=== PATIENT | female | born 1975 | race Caucasian/White ===

== ENCOUNTER → 2019-05-01 | Outpatient (CLI) | payer BC, OTHER ==
[~2019-05-01] VITALS: Ht 157.5 cm; Wt 70.3 kg
[~2019-05-01] MED LIST: FLEXERIL PO; VENLAFAXINE HCL75 M1 PO
[2019-05-01 13:52] VITALS: BP 121/76
--- NOTE | 2019-05-01 13:54 | NUR ---
Pain Clinic Assessment: 1. History of Osteoarthritis: Not Applicable History of Rheumatoid Arthritis: Not Applicable 2. Height: 5 ft. 2 in. 157.5 cm. Weight: 155.0 lb. oz. 70.308 kg. Patient's BMI: 28.3 3. Vital Signs: BP: 121/76 Pulse: 69 Resp: 16 Temp: 02 Sat: 100 ECG Mon: 4. Pain Intensity: 5 5. Fall Risk: Dizziness: N Needs help standing or walking: N Fallen in the last 3 months: N Fall risk comments: 6. Patient on Blood Thinner: None 7. History of Hypertension: N 8. Opioid Therapy greater than 6 weeks: Opiate Contract Signed: 9. Risk Assessment Tool Provided: 2-low 10. Functional Assessment Tool: 11. Recreational Drug Use: Never Drug Type: Tobacco Use: Former Smoker Tobacco Type: Amount or Packs/day: How Many Years: Alcohol Use: Yes Frequency: Special Occasions Quant: 2
--- NOTE | 2019-05-15 07:40 | HPC ---
[facility] [place] [address] PAIN MANAGEMENT CONSULTATION Name: ASHA CORTES Room #: REG TRISTEN Dipika#: [id number] Admission: 05/01/19 Attend Phys: Kael Bennett DO Discharge: Date of : 75 Report #: [id number] THIS REPORT FOR: cc: MIKE - No family physician/PCP MIKE - No family physician/PCP Kael Bennett DO ~ THIS REPORT FOR: //name// DATE OF SERVICE: 05/01/2019 CHIEF COMPLAINT: Neck pain, bilateral shoulder and upper extremity pain, right greater than left. HISTORY OF PRESENT ILLNESS: As you know, the patient is a 43-year-old female who reports longstanding history of neck pain, bilateral upper extremity pain. She indicates pain began in 1993. The patient apparently has undergone a fusion of the C5 through C7 area in her home state of [place]. She has relocated to the area and sought evaluation through her primary care physician who referred the patient on to Neurosurgery. She was evaluated by Neurosurgery and advised that she is not a surgical candidate at this time and was given suggestions for treatment. She chose to be seen in our clinic to discuss options for therapy. The patient was originally sent to our clinic for occipital neuralgia and chronic cervical radiculopathy with mainly right-sided issues. She reported during the evaluation with Neurosurgery a pain of up to 6/10. Imaging of the cervical spine showed no significant abnormalities and she was advised to try more conservative options. The patient reports today her pain is continuous, steady, and constant, describes the pain as shooting, aching, sharp, and stabbing, places current pain score 4-5/10, daily average of 6/10, worst pain has been as 8/10. The patient indicates she has trialled various medications including gabapentin, Lyrica, and Cymbalta for pain, all of which have provided no improvement. She was referred to our service to discuss the potential treatment options for chronic occipital neuralgia and cervical radiculopathy. PAST MEDICAL HISTORY: 1. Emotional problems. 2. Gallbladder disease. 3. Uterine cancer. 4. Chronic headaches. PAST SURGICAL HISTORY: 1. Cholecystectomy. 2. Cervical fusion. [facility] [address] [place] [address] PAIN MANAGEMENT CONSULTATION Name: ASHA CORTES Room #: REG [facility]..#: [id number] Admission: 05/01/19 Attend Phys: Kael Bennett DO Discharge: Date of : 75 Report #: [id number] 3. Partial hysterectomy. 4. Repeat cervical surgery. 5. Shoulder surgery. SOCIAL HISTORY: The patient reports she is a nonsmoker. Denies IV or illicit drug use. Admits to 2-3 alcohol beverages per week. 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 She is working, not receiving workmen's compensation or is she trying to obtain disability benefits. She reports she is not in litigation in regards to pain. She is unaccompanied at today's visit. REVIEW OF SYSTEMS: Positive for headaches, wearing corrective eyewear, numbness and tingling, neck pain and bilateral upper extremity pain and cervicogenic headaches. All other review of systems negative per 12-point review of systems other than those listed in history of present illness. Pain impact score 44/70 indicating moderate interference of daily activities secondary to pain. ALLERGIES: No reported drug allergies. CURRENT MEDICATIONS: Venlafaxine 75 mg twice a day, cyclobenzaprine 10 mg t.i.d. p.r.n. muscle spasms. IMAGING: CT of the head and cervical spine obtained on 01/18/2019 shows minimal retrolisthesis of C4 on C5, anterior cervical diskectomy and fusion hardware noted. Mild uncovertebral joint changes throughout the cervical spine. No significant central canal neural foraminal stenosis. PHYSICAL EXAMINATION: VITAL SIGNS: Blood pressure 121/76, pulse 69, respiratory rate 16, and unlabored. The patient is 100% on room air. Height 5 feet 2 inches tall, weight 155 pounds, BMI calculated 28.3. GENERAL: Well-developed, well-nourished, well-hydrated 43-year-old female, appears older than stated age, placing current pain score 5/10. HEENT: Normocephalic, atraumatic. Pupils are equal, round, and reactive. NEUROLOGIC: There is normal speech. The patient deemed a fair historian. LUNGS: Clear. No wheezing noted. CARDIOVASCULAR: Regular. ABDOMEN: Soft. EXTREMITIES: Show no clubbing, no cyanosis, and no edema. MUSCULOSKELETAL: Upper extremity strength equal and symmetrical 5/5. She is intact to light touch from C5-T1 dermatomes. Cervical provocation testing is met with restriction in motion both with lateral flexion and rotation. No significant pain generated. There is some palpatory tenderness over the paraspinal musculature of the cervical spine on the right. Deep palpation in [facility] [address] [place] [address] PAIN MANAGEMENT CONSULTATION Name: ASHA CORTES #: REG TRISTEN Bar#: [id number] Admission: 05/01/19 Attend Phys: Kael Bennett DO Discharge: Date of : 75 Report #: [id number] area causes intensification of pain consistent with an occipital neuralgia. Upper extremity strength equal and symmetrical 5/5. Muscle bulk and tone equal and symmetrical in comparing left upper extremity to right. Deep tendon reflexes are symmetrical. ASSESSMENT: 1. Right occipital neuralgia. 2. Chronic cervical radiculopathy. 3. Failed cervical spine surgery. PLAN: 1. The patient has been referred to our service by her neurosurgery team to discuss the possibility of treatment for right occipital neuralgia. We discussed with the patient treatment options for occipital neuralgia which include physical therapy, stretching exercise, and traction techniques. We discussed medication management being initiated by her primary care team either in the form of restarting nortriptyline, amitriptyline, Cymbalta, Lyrica, or gabapentin. We discussed occipital nerve blocks, which can provide some transient improvement in symptoms. We also discussed Botox injections, which will provide a more long-term benefit, but will have to be sought through Neurology. We also discussed surgical options with the patient today. After reviewing the risks and benefits of all the proposed treatment options, the patient chose to obtain a primary care physician to begin medication management. Once the patient has obtained this primary care team, the following would be recommended for treatment. 1. If the patient is started on nortriptyline, would recommend 25 mg dose initially at night for 7 nights, increase to 2 tabs p.o. at bedtime or a total of 50 mg, continuing the escalation every 7 days until reaching efficacious level or side effects that cannot be tolerated. If choosing to utilize Cymbalta, begin the patient at 30 mg dose at night for 7 nights, then increase to 60 mg and continue for 1 month. Further escalation by 30 mg dose would be done every month until reaching 120 mg total per day or side effects that cannot be tolerated. We also discussed Lyrica starting at 75 mg dose, continuing to increase every 7 nights to reach upwards of 225 mg p.o. at bedtime. We also discussed gabapentin therapy starting at 300 mg dose escalating every 3 days to reaching a total of up to 1200 mg t.i.d. This can be initiated by her primary care team if they deem necessary. 2. The patient and I did discuss at some length today the possibility of a spinal cord stimulator to help with cervical radiculopathy. They have shown to be somewhat effective, though given her a level of fusion, it may be impossible to be able to feed the leads appropriately into the cervical area given the small caliber of cervical spinal canal. We will have to obtain the patient's MRI and review this MRI in its entirety. We will attempt to gain this MRI and have requested that the patient fill out a release of information forms. Once we have a chance to review this and determine if [place] [address] PAIN MANAGEMENT CONSULTATION Name: ASHA CORTES Room #: REG TRISTEN Bar#: [id number] Admission: 05/01/19 Attend Phys: Kael Bennett DO Discharge: Date of : 75 Report #: [id number] cord stimulator, we will contact the patient. I did give the patient information about the spinal cord stimulator today that she can review at her earliest convenience. She will have to undergo psychiatric evaluation to determine if she is a candidate from a psychosocial standpoint, but if mechanically she is a candidate, we can certainly look forward to this as an option for treatment. We will keep the patient apprised of our review of the MRI and determine if she is a candidate mechanically to undergo the procedure. 3. We will be obtaining also from the patient information about the EMG that she had done with Dr. Kirkpatrick. Apparently, this EMG was completed in early portion of March. We will obtain this information and determine if a cervical radiculopathy remains present. There is a possibility that she is experiencing just post-cervical pain typical with fusion. We will review this EMG and determine if she is a candidate for spinal cord stimulator based on those findings as well. We have asked for the release of this information. 4. We will contact the patient once we have a chance to review all the remaining information and advised her of treatment course. Based on current physical exam and history she provides, it does appear that she is suffering from occipital neuralgia which may benefit from injections or Botox treatments. As for the cervical radiculopathy, we will review further and determine if this is something needed to be treated with aggressive treatment or the patient can follow up with PCP for medications. 5. We would like to thank Angi Harris for the opportunity to see the patient in consultation. We will keep you apprised of treatment suggestions. <ELECTRONICALLY SIGNED> By: Kael Bennett DO 05/15/19 [id number] Kael Bennett DO /nt
== END ==
LOC: PAIN 06:54
DX: M54.12 Radiculopathy, cervical region (principal); M54.81 Occipital neuralgia; M25.511 Pain in right shoulder; M25.512 Pain in left shoulder; M79.641 Pain in right hand; M79.642 Pain in left hand; Z90.49 Acquired absence of other specified parts of digestive tract; Z98.1 Arthrodesis status; Z79.899 Other long term (current) drug therapy

== ENCOUNTER → 2019-05-29 | Outpatient (CLI) | payer BC, OTHER ==
[~2019-05-29] VITALS: Ht 157.5 cm; Wt 69.7 kg
[~2019-05-29] MED LIST changes: +PERCOCET 7.5-31 EAC1 PO
--- NOTE | ~2019-05-29 | HPC ---
[facility] [place] [address] PAIN MANAGEMENT CONSULTATION Name: ASHA CORTES Room #: REG TRISTEN [facility].#: [id number] Admission: 05/29/19 Attend Phys: Kael Bennett DO Discharge: Date of : 75 Report #: [id number] THIS REPORT FOR: cc: MIKE - No family physician/PCP FAM - No family physician/PCP Kael Bennett DO ~ CC: [facility] physician/PCP Kael Harris DATE OF SERVICE: 05/29/2019 CHIEF COMPLAINT: Neck pain, bilateral shoulder and upper extremity pain, right greater than left. HISTORY OF PRESENT ILLNESS: As you know, patient is a 43-year-old female who has had longstanding history of neck pain, bilateral upper extremity pain and paresthesias that began in 1993. She has undergone fusion of the C5 through C7 level in her home state of [place]. She relocated to our area and started evaluation through Neurosurgery who referred the patient to our clinic to discuss options for treatment. I saw the patient in consultation 05/01/2019 where we discussed the options for treatment. Unfortunately, her options for treatment are very limited. She is not a traditional surgical candidate based on the reports from Neurosurgery after seeing nurse practitioner, Angi Harris. We saw the patient here in our clinic on 05/01/2019 gave her the options of treatment, which would be physical therapy, stretching exercises, traction techniques. We also discussed having her primary care physician adjust medications such as nortriptyline, amitriptyline, Lyrica, Cymbalta or gabapentin to address neuropathic symptoms. We would not recommend opioid medications in this patient's case as they are ineffective against neuropathic symptoms. We discussed cervical epidural injection under fluoroscopic guidance, though the patient has had them in the past with no efficacy. We also discussed ultimately spinal cord stimulator therapy. We have obtained information from the patient's surgical sites and unfortunately percutaneous leads would not be able to be advanced due to the posterior changes from her surgeries. This precluded her from having a trial with percutaneous leads, but does not preclude her from a possible paddle trial lead placement. Unfortunately, we at [facility] do not offer this type of treatment. She returns today to discuss this spinal cord stimulator trial. ALLERGIES: No reported drug allergies. CURRENT MEDICATIONS: Venlafaxine 75 mg twice a day, cyclobenzaprine 10 mg t.i.d. p.r.n. SOCIAL HISTORY: The patient reports she is a nonsmoker. [place] [address] PAIN MANAGEMENT CONSULTATION Name: ASHA CORTES Room #: REG TRISTEN Dipika#: [id number] Admission: 05/29/19 Attend Phys: Kael Bennett DO Discharge: Date of : 75 Report #: [id number] drug use. She admits to 2-3 alcohol beverages per week. She is employed with [employer] working, not receiving workmen's compensation, unaccompanied today. IMAGING: There is no new imaging available. PHYSICAL EXAMINATION: VITAL SIGNS: Blood pressure 116/72, pulse 70, respiratory rate 18 and unlabored. The patient is 98% on room air. Height 5 feet 2 inches tall, weight 153.6 pounds and BMI calculated 28.1. GENERAL: Well-developed, well-nourished, well-hydrated 43-year-old female appearing stated age. She is placing pain today at 6/10. HEENT: Normocephalic, atraumatic. Pupils equal, round, reactive to light. EXTREMITIES: Show no clubbing, no cyanosis, and no edema. MUSCULOSKELETAL: Upper extremity strength remains symmetrical 5/5, intact to light touch from C5-T1 dermatomes. Cervical provocation test is met with restriction of motion both with lateral flexion and rotation. There are well-healed surgical posterior scars and anterior scars from prior fusions. Muscle bulk and tone equal and symmetrical in the upper extremities. Deep tendon reflexes are equal and symmetrical in upper extremities. ASSESSMENT: 1. Chronic neck pain. 2. Chronic cervical radiculopathy. 3. Failed cervical spine surgery. 4. Chronic intractable pain. PLAN: 1. The patient returns today in followup visit to discuss the review of her information and surgical sites. Unfortunately, based on imaging, I do not believe we will be able to easily place a percutaneous leads in the cervical region. She has had posterior fusion from C5 through C7, which will make the canal much more tortuous plus scarring tissue that is noted in imaging. We would recommend if the patient wishes to look towards a spinal cord stimulator as a treatment course to discuss with Neurosurgery the possibility of a paddle lead placement in the cervical spine. Percutaneous leads I do not feel are going to be an achievable goal. I have advised the patient such today. The patient will be following up with Neurosurgery in regards to the possibility of a paddle lead trial and placement to address cervical radicular symptoms. 2. No medication changes made at today's visit. The patient presently does not have a family practitioner to work with from a primary care physician standpoint. She will need to obtain a primary care physician who can help with adjusting medications for her ongoing pain issues. Certainly, we can give suggestions of treatment, though at this point, I do not feel that we will be able to continually see the patient for these neuropathic medications without the assistance of her primary care. The patient is looking into this issue. We [facility] [address] [address] PAIN MANAGEMENT CONSULTATION Name: ASHA CORTES Room #: REG TRISTEN Bar#: [id number] Admission: 05/29/19 Attend Phys: Kael Bennett DO Discharge: Date of : 75 Report #: [id number] would be more than willing to provide suggestions to that practitioner once they are available. 3. We wish to thank nurse practitioner, Angi Harris for the referral of the patient to our clinic. We will be returning her care to your capable services to discuss spinal cord stimulator paddle implantation for the cervical radiculopathy patient is experiencing. By: [id number] Kael Bennett DO /nt
[2019-05-29 13:34] VITALS: BP 116/72
--- NOTE | 2019-05-29 13:39 | NUR ---
Pain Clinic Assessment: 1. History of Osteoarthritis: Not Applicable History of Rheumatoid Arthritis: Not Applicable 2. Height: 5 ft. 2 in. 157.5 cm. Weight: 153.6 lb. oz. 69.672 kg. Patient's BMI: 28.1 3. Vital Signs: BP: 116/72 Pulse: 70 Resp: 18 Temp: 02 Sat: 98 ECG Mon: 4. Pain Intensity: 6 5. Fall Risk: Dizziness: N Needs help standing or walking: N Fallen in the last 3 months: N Fall risk comments: 6. Patient on Blood Thinner: None 7. History of Hypertension: N 8. Opioid Therapy greater than 6 weeks: Y Opiate Contract Signed: 9. Risk Assessment Tool Provided: 2-low 10. Functional Assessment Tool: 11. Recreational Drug Use: Never Drug Type: Tobacco Use: Former Smoker Tobacco Type: Amount or Packs/day: How Many Years: Alcohol Use: Yes Frequency: Quant:
== END ==
LOC: PAIN 06:53
DX: M54.12 Radiculopathy, cervical region (principal); G89.29 Other chronic pain; Z79.01 Long term (current) use of anticoagulants; Z79.899 Other long term (current) drug therapy

== ENCOUNTER → 2019-07-31 | Outpatient (CLI) | payer BC ==
[~2019-07-31] VITALS: Ht 157.5 cm; Wt 70.2 kg
[~2019-07-31] MED LIST changes: +PERCOCET 5-3251 EACH PO
[2019-07-31 08:17] VITALS: BP 123/79
--- NOTE | 2019-07-31 08:26 | NUR ---
Pain Clinic Assessment: 1. History of Osteoarthritis: Not Applicable History of Rheumatoid Arthritis: Not Applicable 2. Height: 5 ft. 2 in. 157.5 cm. Weight: 154.8 lb. oz. 70.217 kg. Patient's BMI: 28.3 3. Vital Signs: BP: 123/79 Pulse: 73 Resp: 16 Temp: 02 Sat: 95 ECG Mon: 4. Pain Intensity: 5-6 5. Fall Risk: Dizziness: N Needs help standing or walking: N Fallen in the last 3 months: N Fall risk comments: 6. Patient on Blood Thinner: None 7. History of Hypertension: N 8. Opioid Therapy greater than 6 weeks: Y Opiate Contract Signed: 9. Risk Assessment Tool Provided: 2-low 10. Functional Assessment Tool: 11. Recreational Drug Use: Never Drug Type: Tobacco Use: Former Smoker Tobacco Type: Amount or Packs/day: How Many Years: Alcohol Use: Yes Frequency: Quant:
--- NOTE | 2019-08-01 12:58 | HPC ---
[facility] [address] [address] PAIN MANAGEMENT CONSULTATION Name: ASHA CORTES Room #: REG TRISTEN Maria L.#: [id number] Admission: 07/31/19 Attend Phys: Kael Bennett DO Discharge: Date of : 75 Report #: [id number] THIS REPORT FOR: cc: FAM - No family physician/PCP FAM - No family physician/PCP Kael Bennett DO ~ CC: [facility] physician/PCP Kael Jerry RN DATE OF SERVICE: 07/31/2019 REFERRING PHYSICIAN: Regulo León MD CHIEF COMPLAINT: Neck pain, bilateral shoulder and upper extremity pain. HISTORY OF PRESENT ILLNESS: As you know, the patient is a 43-year-old female with longstanding history of neck pain, bilateral upper extremity pain with paresthesias began in 1993. She has undergone a fusion at C5, C6 through C7 levels, relocated to our area, where she is followed up with Neurosurgery. The patient was referred to our clinic to discuss the possibility of treatment options. We discussed with the patient the treatment options that we have are limited, but we did not recommend opioid medications long-term. She was receiving opioid medications through the referring physician. We did discuss more appropriate treatment options including neuropathic medications and the possibility of either surgical intervention, whether this be a spinal cord stimulator or the possibility of using traditional surgical roots. The patient sought further evaluation through her neurosurgery team who advised her she is a candidate to look towards cervical spinal cord stimulator treatment, but she could not undergo that procedure due to COVID-19 restrictions on elective surgeries. She was advised to return to our clinic to discuss options for treatment. She denies new injury, trauma or any changes in medical history since our last visit. ALLERGIES: No known drug allergies. CURRENT MEDICATIONS: Venlafaxine 75 mg twice a day, cyclobenzaprine 10 mg t.i.d. Percocet 7.5/325, five tabs per day. SOCIAL HISTORY: The patient reports she is a nonsmoker. Denies IV or illicit drug use. Admits to 3 alcoholic beverages per week. She is employed with [employer]. She is working, not receiving workmen's compensation, unaccompanied today. IMAGING: No new imaging available. [facility] [address] [place] [address] PAIN MANAGEMENT CONSULTATION Name: ASHA CORTES Room #: REG [facility].#: [id number] Admission: 07/31/19 Attend Phys: Kael Bennett DO Discharge: Date of : 75 Report #: [id number] PHYSICAL EXAMINATION: VITAL SIGNS: Blood pressure 123/79, pulse 73, respiratory rate 16 and unlabored. The patient is 95% on room air. Height 5 feet 2 inches tall, weight 154.8 pounds, BMI calculated 28.3. GENERAL: Well-developed, well-nourished, well-hydrated 43-year-old female appearing stated age, pain is rated today at around 5-6/10. HEENT: Normocephalic, atraumatic. Pupils equal, round, reactive to light. Speech is fluent. The patient deemed a good historian. EXTREMITIES: Show no clubbing, no cyanosis, and no edema. MUSCULOSKELETAL: Upper extremity strength appears symmetrical 5/5, intact to light touch from L1 through S2 dermatomes. Cervical provocation is met with restriction of motion with lateral flexion and rotation. Well-healed surgical scars. ASSESSMENT: 1. Chronic neck pain. 2. Chronic cervical radiculopathy. 3. Failed cervical spine surgery. 4. Chronic intractable pain. PLAN: 1. The patient returns today in followup visit indicating that she has discussed her case with Neurosurgery and they felt that she would be a possible candidate for implantation of a cervical spinal cord stimulator, though at this point due to the COVID-19 restriction, she is not a candidate to undergo the procedure at this time. She had this discussion with Neurosurgery, but has not been seen by Psychiatry. We recommend that she begin the process of obtaining all the required prerequisites before they discuss the possible surgery. The patient was agreeable. 2. We have provided the patient with a referral to discuss her case with Psychiatry. This is required by all ____ when individuals are moving forward with spinal cord stimulator trials. We will have the patient undergo the psychiatric evaluation and return to her neurosurgeon with that information. 3. We have advised the patient to contact Neurosurgery today as they have relaxed the COVID-19 restrictions to some degree and to request an opportunity to expedite her surgical case. The patient should be able to obtain her psychiatric evaluation over the next couple of days as they are doing most psychiatric evaluations via Telehealth and this can be done at the patient's earliest convenience. The patient will contact Neurosurgery to move her procedure time forward if at all possible. 4. The patient indicates that she is taking excessively high dose opioid medication. She is taking 7.5 mg oxycodone doses up to 5 times a day for a total of 37.5 mg of oxycodone a day, which equates to 56-1/4 morphine equivalents a day, well above the CDCs recommended guidelines for chronic pain. We have advised the patient in the past that chronic opioid medication is not [address] [address] PAIN MANAGEMENT CONSULTATION Name: ASHA CORTES Room #: REG TRISTEN Bar#: [id number] Admission: 07/31/19 Attend Phys: Kael Bennett DO Discharge: Date of : 75 Report #: [id number] appropriate for neuropathic symptoms and would not be recommended. She advises us today that she is no longer receiving opioid medications from her workmen's compensation physician, as they have completed her case and have settled. She has also been advised by her PCP that continuation of medication needed to be predicated on surgical options. She returns to our clinic today stating that her Neurosurgery Team has advised that we would be willing to write these medications. I have advised the patient at this time, we are not at all willing to write the level of medication she is on. We would be willing to provide her with a short dose of medication with the understanding that these will be discontinued as soon as the surgery is completed. We will not be providing long-term opioid medication management in this patient's case as it is not an appropriate treatment course. The patient states she understood. She is willing to make the adjustments in our medication recommendations with the understanding these will be discontinued quickly. 5. The patient was provided a prescription of oxycodone/acetaminophen 5/325 one tab p.o. q. 8 hours p.r.n. for pain. I have given the patient #90 tablets to release today. These are to be used no more than 3 a day. These will be discontinued as soon as surgery has been completed. This is not a long-term medication management. We will not be providing more than 3 months total time at this dosing of therapy. The patient was made aware of this today. 6. The patient will contact her neurosurgery team today to begin the process of expediting her surgical procedure if they may do so under the current restrictions. <ELECTRONICALLY SIGNED> By: Kael Bennett DO 08/01/19 1258 [id number] Kael Bennett DO /nt
== END ==
LOC: PAIN 06:47
DX: M54.12 Radiculopathy, cervical region (principal); M25.511 Pain in right shoulder; M25.512 Pain in left shoulder; G89.29 Other chronic pain; M96.1 Postlaminectomy syndrome, not elsewhere classified

== ENCOUNTER → 2019-08-28 | Outpatient (CLI) | payer BC ==
[~2019-08-28] VITALS: Ht 157.5 cm; Wt 70.3 kg
[2019-08-28 08:00] VITALS: BP 132/77
--- NOTE | 2019-08-28 08:05 | NUR ---
Pain Clinic Assessment: 1. History of Osteoarthritis: NECK History of Rheumatoid Arthritis: Not Applicable 2. Height: 5 ft. 2 in. 157.5 cm. Weight: 155.0 lb. oz. 70.308 kg. Patient's BMI: 28.3 3. Vital Signs: BP: 132/77 Pulse: 84 Resp: 18 Temp: 02 Sat: 100 ECG Mon: 4. Pain Intensity: 4 5. Fall Risk: Dizziness: N Needs help standing or walking: N Fallen in the last 3 months: N Fall risk comments: 6. Patient on Blood Thinner: None 7. History of Hypertension: N 8. Opioid Therapy greater than 6 weeks: Y Opiate Contract Signed: 9. Risk Assessment Tool Provided: 2-low 10. Functional Assessment Tool: 11. Recreational Drug Use: Never Drug Type: Tobacco Use: Former Smoker Tobacco Type: Amount or Packs/day: How Many Years: Alcohol Use: Yes Frequency: Weekly Quant: 4
--- NOTE | 2019-08-28 14:16 | HPC ---
[facility] [place] [address] PAIN MANAGEMENT CONSULTATION Name: ASHA CORTES Room #: REG TESSIEJose M.Colby.#: [id number] Admission: 08/28/19 Attend Phys: Vanessa Salomon Discharge: Date of : 75 Report #: [id number] THIS REPORT FOR: cc: FAM - No family physician/PCP FAM - No family physician/PCP Vanessa Salomon ~ CC: DR GRETCHEN MARI DO DR SAMMI LEÓN DATE OF SERVICE: 08/28/2019 CHIEF COMPLAINT: Neck pain, bilateral shoulder pain and upper extremity pain. HISTORY OF PRESENT ILLNESS: As you know, this is a 43-year-old female who returns to the pain clinic today for refill of her medications by Dr. Gretchen Mari who is willing to write for 3 months until she is able to have a spinal cord stimulator placed by Dr. León. She has not seen a psychiatrist for her spinal cord evaluation. She is going to have that done this next month. She states that she has seen us last, her had fallen and required emergency surgery. She has been dealing with that and also the COVID virus, things were closed, so she is planning on making an appointment soon to have that evaluation, so she can proceed with her trial of the spinal cord stimulator for her neck pain. Today, she is complaining of neck, right shoulder, right arm pain, rating it 4/10, explaining that it is a dull, sharp pain, worse with flexion of her neck. She feels the medication as well as stretching have been beneficial. 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 She denies any problems with constipation or daytime somnolence as a result of her opioid medications. ALLERGIES: No known drug allergies. CURRENT LIST OF MEDICATIONS: Oxycodone 5/325 t.i.d., venlafaxine and Flexeril. PQRS: 1. She has osteoarthritis in her neck. She denies any rheumatoid arthritis. 2. Height is 5 feet 2 inches, weight is 155, BMI is 28. 3. Vital signs 132/77, pulse is 84, respirations 18, oxygen sat is 100. 4. Pain score is 4/10. 5. Denies dizziness, does not need help walking or standing, has not fallen in the last 3 months. 6. The patient is not on any blood thinners or medicine for hypertension. 7. Opioid therapy is greater than 6 weeks. We have not signed an opioid signed contract since she is only to have medicines from us for [address] [place] [address] PAIN MANAGEMENT CONSULTATION Name: ASHA CORTES Room #: REG Jose Lisa.#: [id number] Admission: 08/28/19 Attend Phys: Vanessa Salomon Discharge: Date of : 75 Report #: [id number] 8. Recreational drug use, she denies. She is a former smoker and occasionally drinks alcohol. Her risk assessment tool is low. Functional assessment is 44/70. PHYSICAL EXAMINATION: GENERAL: This is a well-developed, well-nourished, well-hydrated 43-year-old female who appears her stated age, placing her current pain score at 4/10. HEENT: Normocephalic, atraumatic. Pupils equal, round and reactive to light. She is wearing a mask today. EXTREMITIES: No clubbing, no cyanosis, no edema. MUSCULOSKELETAL: Cervical provocation is met with restrictions of motion of the lateral flexion and rotation. Pain is increased with forward flexion as well. Upper extremity strength symmetrical at 5/5 in both extremities. ASSESSMENT: 1. Chronic pain. 2. Cervical radiculopathy. 3. Failed cervical spine surgery. 4. Chronic intractable pain. We reviewed the fact that opiate medications are being used to provide analgesia adequate to support activities of daily living, not attempting to achieve a specific pain score on the 0-10 Visual Analog Scale. The current opiate medications are providing sufficient analgesia to allow the patient to participate in activities of daily living. The patient is not exhibiting any aberrant behavior suggestive of drug diversion. The patient is not having any adverse reactions to medications. The patient is not suffering from daytime somnolence or mental acuity changes. The patient is managing opiate-induced constipation with appropriate [id number] agents and dietary considerations. The patient was counseled on concern for caution with operating a motor vehicle while using opiate medications. A physical exam was performed and the patient's functional status was evaluated. All patients with back pain were advised against the bed rest greater than 4 days and were advised to return to normal activities. Pain score assessment was noted and the treatment plan was reviewed with the patient. All current medications, both prescribed and OTC were reviewed and reconciled on the electronic medical record. Tobacco screening was accomplished and smoking cessation was advised when indicated. BMI was noted and diet/exercise modification was recommended for all patients following outside normal parameters. I reviewed with the patient today their responsibilities to safeguard prescription medications, reviewed their responsibility to utilize medications only as prescribed by the physician. They are to seek and receive pain medications only from 1 physician group ([facility]). They are to use [address] [address] PAIN MANAGEMENT CONSULTATION Name: ASHA CORTES Room #: REG TRISTEN Bar#: [id number] Admission: 08/28/19 Attend Phys: Vanessa Salomon Discharge: Date of : 75 Report #: [id number] pharmacy and keep the clinic informed if they change pharmacies. Their responsibilities include making followup visits in a timely fashion and to avoid abrupt discontinuation of medication usage. Their responsibilities further include bringing their medications (bottles from the pharmacy with residual pills) to the visit for possible confirmation of pill counts and the patient understands it is their responsibility to submit to random drug screens to ensure both that the medications prescribed are present, and that no other controlled substances are present. All prescriptions provided today were generated electronically. PLAN: 1. We discussed treatment options with the patient today. I encouraged the patient to make an appointment for her psychiatric evaluation for her spinal cord stimulator placement, now that things are open from the COVID virus we need to proceed with this trial to be done by Dr. Sammi León. The patient is agreeable. She will call this week to set up an appointment in the next few weeks. 2. We will refill her Percocet 5/325, #90 for 1 additional month. This will be sent electronically by Dr. Gretchen Mari to their [facility] pharmacy. I reminded the patient that Dr. Grethcen Mari said he was willing to write medications for a total of 3 months, this being her second fill. She needs to work towards having her stimulator trial. The patient is agreeable with this. 3. The patient is seen today in collaboration with Dr. Mari. The patient will return in 1 month. <ELECTRONICALLY SIGNED> By: Vanessa Salomon 08/28/19 1416 0826 0840 Vanessa Salomon /janessa
== END ==
LOC: PAIN 06:48
PROVIDERS: ATTEND Clinical Nurse Specialist Adult Health
DX: M54.12 Radiculopathy, cervical region (principal); Z79.899 Other long term (current) drug therapy

== ENCOUNTER → 2019-09-25 | Outpatient (CLI) | payer BC ==
[~2019-09-25] VITALS: Ht 157.5 cm; Wt 70.3 kg
[2019-09-25 08:09] VITALS: BP 143/85
--- NOTE | 2019-09-25 08:13 | NUR ---
Pain Clinic Assessment: 1. History of Osteoarthritis: NECK History of Rheumatoid Arthritis: Not Applicable 2. Height: 5 ft. 2 in. 157.5 cm. Weight: 155.0 lb. oz. 70.308 kg. Patient's BMI: 28.3 3. Vital Signs: BP: 143/85 Pulse: 86 Resp: 16 Temp: 02 Sat: 99 ECG Mon: 4. Pain Intensity: 5 5. Fall Risk: Dizziness: N Needs help standing or walking: N Fallen in the last 3 months: N Fall risk comments: 6. Patient on Blood Thinner: None 7. History of Hypertension: N 8. Opioid Therapy greater than 6 weeks: Y Opiate Contract Signed: 9. Risk Assessment Tool Provided: 2-low 10. Functional Assessment Tool: 11. Recreational Drug Use: Never Drug Type: Tobacco Use: Former Smoker Tobacco Type: Amount or Packs/day: How Many Years: Alcohol Use: Yes Frequency: Quant:
--- NOTE | 2019-09-25 14:05 | HPC ---
[facility] [address] [place] [address] PAIN MANAGEMENT CONSULTATION Name: ASHA CORTES Room #: REG TRISTEN M.Colby.#: [id number] Admission: 09/25/19 Attend Phys: Vanessa Salomon Discharge: Date of : 75 Report #: [id number] THIS REPORT FOR: cc: MIKE - No family physician/PCP FAM - No family physician/PCP Vanessa Salomon ~ CC: Kael Sahni MD DATE OF SERVICE: 09/25/2019 CHIEF COMPLAINT: Neck pain, bilateral shoulder pain and upper extremity pain. HISTORY OF PRESENT ILLNESS: This is a pleasant 43-year-old female who returns to the pain clinic today for refill of her medications. Dr. Kael Bennett had agreed to write for 3 months of her opioid medications and then she hopefully will have her spinal cord stimulator trial done by Dr. Regulo León. She reports to me today that she is having her psychiatric evaluation for the spinal cord stimulator tomorrow with Dr. Anderson and then she is seeing Heike on 10/02/2019. Hopefully at that time, she will have her trial scheduled for Dr. León to perform for her cervical spinal cord stimulator. The patient reports a pain score of 5/10 today in her neck and right shoulder. It is a dull, sharp pain, worse with looking down and being upright. She reports that she mopped her floor yesterday and that did cause some increased pain. She feels that stretching and her medications have been beneficial. She denies any daytime somnolence or constipation as a result of her medications. She is looking forward to progressing with this process and having her trial completed for his spinal cord stimulator. ALLERGIES: No known drug allergies. LIST OF MEDICATIONS: Oxycodone 5/325 t.i.d. p.r.n., venlafaxine and Flexeril. PQRS: 1. 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 Denies any rheumatoid arthritis. 2. Height is 5 feet 2 inches, weight is 155, BMI is 28. Vital signs 143/85, pulse is 86, respirations 16, oxygen sat is 99. Pain score is 5/10. Denies dizziness, does not need help walking or standing, has not fallen in the last 3 months. The patient is not on any blood thinners or medicine for hypertension. Her opioid therapy is greater than 6 weeks. Her risk assessment is low. Functional assessment is 44/70. 3. Recreational drug use, she denies. She is a former smoker [place] [address] PAIN MANAGEMENT CONSULTATION Name: ASHA CORTES Room #: REG [facility] Maria L.#: [id number] Admission: 09/25/19 Attend Phys: Vanessa Salomon Discharge: Date of : 75 Report #: [id number] According to the prescription monitoring system, she last filled on 08/28/2019. She is due to fill her medications this week. Her morphine mEq is 22 MMEs. PHYSICAL EXAMINATION: GENERAL: This is a well-developed, well-nourished, well-hydrated 43-year-old female who appears her stated age, placing her current pain score at 5/10 today. She is a good historian. HEENT: Normocephalic, atraumatic. Pupils are equal, round and reactive to light. She is wearing a mask. EXTREMITIES: No clubbing, no cyanosis, no edema. MUSCULOSKELETAL: Upper extremity strength appears symmetrical of 5/5 and intact to light touch. Cervical provocation is met with restrictions of motion in the lateral flexion and rotation. She does have well-healed scars. ASSESSMENT: 1. Cervical radiculopathy. 2. Failed cervical spine surgery. 3. Chronic intractable pain. 4. Chronic neck pain. PLAN: 1. We discussed treatment options with the patient today. The patient is going to have her psychiatric spinal cord stimulator evaluation tomorrow with Dr. Anderson. She is instructing them to send us a copy of the report as well as Dr. Regulo León. The patient is going to see Heike, the nurse practitioner in Dr. León's office to discuss when the trial for her spinal cord stimulator for her cervical spine will be completed. Dr. León will be performing this trial. 2. The patient understands that Dr. Kael Bennett was willing to write for 3 months of her medications. This will be our last script for her, The patient verbalizes understanding. She is looking forward to having these appointments in the next 2 weeks and hopefully having her trial scheduled before the end of September. Today, we will have Dr. Bennett send electronically her oxycodone 5/325, #90 to her [facility] pharmacy. 3. We wish the patient the best, hopefully the trial will be successful and she will have her implant. She may see us on an needed basis. The patient is seen today in collaboration with Dr. Kael Bennett. <ELECTRONICALLY SIGNED> By: Vanessa Salomon 09/25/19 1405 [id number] [id number] Vanessa Salomon /nt
== END ==
LOC: PAIN 06:45
PROVIDERS: ATTEND Clinical Nurse Specialist Adult Health
DX: M54.12 Radiculopathy, cervical region (principal); G89.4 Chronic pain syndrome; T85.192A Other mechanical complication of implanted electronic neurostimulator of spinal cord electrode (lead), initial encounter

== ENCOUNTER → 2019-10-23 | Outpatient (CLI) | payer BC ==
[~2019-10-23] VITALS: Ht 157.5 cm; Wt 73.5 kg
[2019-10-23 08:04] VITALS: BP 118/79
--- NOTE | 2019-10-23 08:12 | NUR ---
Pain Clinic Assessment: 1. History of Osteoarthritis: NECK History of Rheumatoid Arthritis: Not Applicable 2. Height: 5 ft. 2 in. 157.5 cm. Weight: 162.0 lb. oz. 73.483 kg. Patient's BMI: 29.6 3. Vital Signs: BP: 118/79 Pulse: 80 Resp: 16 Temp: 02 Sat: 100 ECG Mon: 4. Pain Intensity: 5-6 5. Fall Risk: Dizziness: N Needs help standing or walking: N Fallen in the last 3 months: N Fall risk comments: 6. Patient on Blood Thinner: None 7. History of Hypertension: N 8. Opioid Therapy greater than 6 weeks: Y Opiate Contract Signed: 9. Risk Assessment Tool Provided: 2-low 10. Functional Assessment Tool: 11. Recreational Drug Use: Never Drug Type: Tobacco Use: Former Smoker Tobacco Type: Amount or Packs/day: How Many Years: Alcohol Use: Yes Frequency: Quant:
--- NOTE | 2019-10-23 10:34 | HPC ---
[facility] [place] [address] PAIN MANAGEMENT CONSULTATION Name: ASHA CORTES Room #: REG TRISTEN M.R.#: [id number] Admission: 10/23/19 Attend Phys: Vanessa Salomon Discharge: Date of : 75 Report #: [id number] THIS REPORT FOR: cc: FAM - No family physician/PCP FAM - No family physician/PCP Vanessa Salomon ~ CC: GRETCHEN WILLARD MD DATE OF SERVICE: 10/23/2019 CHIEF COMPLAINT: Neck pain, bilateral shoulder pain and upper extremity pain. HISTORY OF PRESENT ILLNESS: This is a pleasant 43-year-old female who returns to the pain clinic for medication refills. She is to have a spinal cord stimulator placed by Dr. León. She was hopeful that it would be completed at this time, but due to COVID, they have not been able to schedule it. She is hopeful to be on their procedure scheduled by the end of November. We did speak with Dr. León's office and they verbalized that this was their hopes as well. So today, she is returning for another month of medication. Our goal is to only keep her on her opioid medications until she has completed her trial. Currently, she rates her pain at 5-6. It is located in her cervical spine that radiates into her right shoulder, dull, and sharp pain. She said it is worse with forward flexion of her neck. She feels that the medication as well as stretches has been beneficial. She does report to me that the Work Comp doctor did release her. She had recently had a cortisone injection in her shoulder that was very painful. He did provide her with some tramadol for a 7-day supply that has shown up on her prescription monitoring. The patient feels that her shoulder is still very problematic. 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 ALLERGIES: No known drug allergies. CURRENT LIST OF MEDICATIONS: Oxycodone 5/325 p.r.n., venlafaxine 75 mg b.i.d. and Flexeril 10 mg at bedtime. PQRS: 1. 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 Denies any rheumatoid arthritis. 2. Height is 5 feet 2 inches, weight is 162, BMI is 29. 3. Vital signs, blood pressure 118/79, pulse is 80, respirations 16, and oxygen sat is 100. 4. Pain score is 5-6. [facility] [address] [place] [address] PAIN MANAGEMENT CONSULTATION Name: ASHA CORTES Room #: REG [facility].#: [id number] Admission: 10/23/19 Attend Phys: Vanessa Salomon Discharge: Date of : 75 Report #: [id number] 5. Denies dizziness, does not need help walking or standing, has not fallen in the last 3 months. 6. The patient is not on any blood thinners or medicine for hypertension. Opioid therapy is greater than 6 weeks. Risk assessment tool is low. Functional assessment is 44/70. 7. Recreational drug use, she denies. She is a former smoker. Does drink alcohol occasionally. According to the prescription monitoring system, the patient is filling our medicines appropriately. She did fill one short script of tramadol from her Work Comp doctor. Her morphine milliequivalent according to the CDC guidelines is 22 MMEs. PHYSICAL EXAMINATION: GENERAL: This is alert and orientated 43-year-old, well-developed, well-nourished female who is placing her current pain score at 5-6/10 today. HEENT: Normocephalic, atraumatic. Pupils equal, round and reactive to light. She is wearing a mask. EXTREMITIES: No clubbing, no cyanosis, no edema. MUSCULOSKELETAL: Upper extremity strength is symmetrical at 5/5 with intact to light touch. Her cervical provocation is met with resistance of motion in the lateral flexion and rotation. She does have well-healed surgical scars. She has pain in the right shoulder that is worse with abduction of her shoulder. IMPRESSION: 1. Chronic neck pain. 2. Chronic cervical radiculopathy. 3. Failed cervical spine surgery. 4. Chronic intractable pain. We reviewed the fact that opiate medications are being used to provide analgesia adequate to support activities of daily living, not attempting to achieve a specific pain score on the 0-10 Visual Analog Scale. The current opiate medications are providing sufficient analgesia to allow the patient to participate in activities of daily living. The patient is not exhibiting any aberrant behavior suggestive of drug diversion. The patient is not having any adverse reactions to medications. The patient is not suffering from daytime somnolence or mental acuity changes. The patient is managing opiate-induced constipation with appropriate vdcl-bkq-opwbwxe agents and dietary considerations. The patient was counseled on concern for caution with operating a motor vehicle while using opiate medications. PLAN: 1. We discussed treatment options with the patient again. The patient is awaiting her spinal cord stimulator placement by Dr. Regulo León, hopeful to be done at the end of November. She is speaking with Heike munroe, the nurse [address] [address] PAIN MANAGEMENT CONSULTATION Name: ASHA CORTES Room #: REG TRISTEN Bar#: [id number] Admission: 10/23/19 Attend Phys: Vanessa Salomon Discharge: Date of : 75 Report #: [id number] practitioner at his office. She will call us to confirm the date of the trial. 2. The patient reports she did have an MRI of the cervical spine done recently per Dr. León's orders. She will have that faxed to us. She did not bring a copy of that, but per her report, it was virtually unchanged from the one we have from 03/2018. 3. We will have Dr. Gretchen Bennett send electronically a script for oxycodone , #90 to her pharmacy. I explained that we will fill one additional month in November and at that time that should be the last prescription that we will provide for. The patient verbalizes understanding. 4. The patient is seen in collaboration with Dr. Gretchen Bennett. <ELECTRONICALLY SIGNED> By: Vanessa Salomon 10/23/19 1034 [id number] Vanessa Salomon /janessa
== END ==
LOC: PAIN 06:43
PROVIDERS: ATTEND Clinical Nurse Specialist Adult Health
DX: M54.12 Radiculopathy, cervical region (principal); M25.511 Pain in right shoulder; M25.512 Pain in left shoulder; M96.1 Postlaminectomy syndrome, not elsewhere classified; G89.29 Other chronic pain

== ENCOUNTER → 2019-11-20 | Outpatient (CLI) | payer BC ==
[~2019-11-20] VITALS: Ht 157.5 cm; Wt 74.8 kg
[2019-11-20 08:57] VITALS: BP 134/84
--- NOTE | 2019-11-20 09:04 | NUR ---
Pain Clinic Assessment: 1. History of Osteoarthritis: NECK History of Rheumatoid Arthritis: Not Applicable 2. Height: 5 ft. 2 in. 157.5 cm. Weight: 164.8 lb. oz. 74.753 kg. Patient's BMI: 30.1 3. Vital Signs: BP: 134/84 Pulse: 112 Resp: 16 Temp: 02 Sat: 98 ECG Mon: 4. Pain Intensity: 8-9 5. Fall Risk: Dizziness: N Needs help standing or walking: N Fallen in the last 3 months: N Fall risk comments: 6. Patient on Blood Thinner: None 7. History of Hypertension: N 8. Opioid Therapy greater than 6 weeks: Y Opiate Contract Signed: 9. Risk Assessment Tool Provided: 2-low 10. Functional Assessment Tool: 11. Recreational Drug Use: Never Drug Type: Tobacco Use: Former Smoker Tobacco Type: Amount or Packs/day: How Many Years: Alcohol Use: Yes Frequency: Quant:
--- NOTE | 2019-11-20 14:24 | HPC ---
[facility] [address] [place] [address] PAIN MANAGEMENT CONSULTATION Name: ASHA CORTES Room #: REG TRISTEN M.R.#: [id number] Admission: 11/20/19 Attend Phys: Vanessa Salomon Discharge: Date of : 75 Report #: [id number] THIS REPORT FOR: cc: FAM - No family physician/PCP FAM - No family physician/PCP Vanessa Salomon ~ CC: Kael Sahni MD DATE OF SERVICE: 11/20/2019 CHIEF COMPLAINT: Neck pain, bilateral shoulder pain, and upper extremity pain. HISTORY OF PRESENT ILLNESS: This is a 43-year-old female, who returns to the Pain Clinic today for a final refill of medications prior to a spinal cord stimulator implant with paddle leads by Dr. Regulo León. She is scheduled to have this surgery on 12/13. Remain in the hospital for several days for the trial and then have the permanent placed if it is successful; therefore, this will be our last prescription that we are giving her for opioid medications. Today, the patient is complaining of pain score of 8-9. She reports that it is most significantly in her neck that radiates into her occipital area to the top of her head. She reports some right shoulder pain that she is having that has been ongoing. She does see a workman comp doctor for that issue. She reports looking up and down. Flexion and extension is most problematic in her neck. She reports it is sharp, stabbing, deep ache today. She feels the medication usually resolves this or helps decrease her pain sensations, but for the last few days it has been very problematic and the medications have not been helpful. She denies any problems with somnolence or daytime somnolence or constipation. Today, she is requesting a final refill of medications from our office. ALLERGIES: No known drug allergies. CURRENT LIST OF MEDICATIONS: Oxycodone 5/325 t.i.d., venlafaxine, and Flexeril. PATIENT'S PQRS: 1. 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 She denies any rheumatoid arthritis. 2. Height is 5 feet 2 inches, weight is 164, BMI is 30. Vital signs 134/84, pulse is 112, respirations 16, oxygen sat is 98, pain score is 8-9. Fall risk. Denies dizziness, does not need help walking or standing, has not fallen in the last 3 months. She is not on any blood thinners or hypertension medicines. 3. Her opioid therapy is greater than 6 weeks; therefore, she does not have an opioid signed contract because this was a temporary treatment from our office. Her risk assessment is low. Functional assessment is 44/70. [address] [address] PAIN MANAGEMENT CONSULTATION Name: ASHA CORTES Room #: REG TRISTEN Bar#: [id number] Admission: 11/20/19 Attend Phys: Vanessa Salomon Discharge: Date of : 75 Report #: [id number] 4. Recreational drug use, she denies. She is a former smoker and does drink alcohol. According to the prescription monitoring system, the patient has been filling appropriately, but that she has filled some tramadol from her Work Comp doctor for very small fills for the last 2 months. I encouraged the patient that tramadol is less potent than her oxycodone and has probably been less ineffective in helping control some of her pain. The patient states that she will not fill any further scripts of tramadol. PHYSICAL EXAMINATION: GENERAL: This is an alert and orientated 43-year-old, rating her pain score today at 8-9. She is a good historian. HEENT: Normocephalic, atraumatic. Pupils equal, round and reactive to light. She is wearing a mask. Sclerae are nonintrinsic. EXTREMITIES: No clubbing, no cyanosis, no edema. She does have pain in her right shoulder that is worse with abduction. MUSCULOSKELETAL: Cervical provocation testing is met with resistance and increased pain. Pain radiates into the occipital area as well today. Her upper extremity strength is symmetrical at 5/5. IMPRESSION: 1. Chronic neck pain. 2. Chronic cervical radiculopathy. 3. Failed cervical spine syndrome. 4. Chronic intractable pain. 5. Ongoing right shoulder pain. We reviewed the fact that opiate medications are being used to provide analgesia adequate to support activities of daily living, not attempting to achieve a specific pain score on the 0-10 Visual Analog Scale. The current opiate medications are providing sufficient analgesia to allow the patient to participate in activities of daily living. The patient is not exhibiting any aberrant behavior suggestive of drug diversion. The patient is not having any adverse reactions to medications. The patient is not suffering from any daytime somnolence or mental acuity changes. The patient is managing opiate-induced constipation with appropriate ejvo-quh-vmrkjat agents and dietary considerations. The patient was counseled on concern for caution with operating a motor vehicle while using opiate medications. PLAN: 1. We discussed treatment options with the patient today. We will have Dr. Kael Bennett send a final prescription of oxycodone 5/325 to her pharmacy for #90. I have instructed the patient that this will get her through her surgery. At that time, she will then receive medications from Dr. León's office. The patient verbalizes understanding. [address] [place] [address] PAIN MANAGEMENT CONSULTATION Name: ASHA CORTES Room #: REG [facility] M.R.#: [id number] Admission: 11/20/19 Attend Phys: Vanessa Salomon Discharge: Date of : 75 Report #: [id number] 2. We did discuss her tramadol use from her Work Comp. I explained that it is much less potent opioid than her oxycodone and encouraged her to take one or the other, not both of these opioids. 3. We did discuss constipation and encouraged the patient to just drink plenty of liquids to help prevent any possible issues that may arise. 4. We wish the patient the best of luck with her spinal cord stimulator paddle leads that are placed by Dr. León, who will then continue to follow her. Thank you for this referral. The patient was seen today in collaboration with Dr. Kael Bennett. <ELECTRONICALLY SIGNED> By: Vanessa Salomon 11/20/19 1424 [id number] [id number] Vanessa Salomon /nt
== END ==
LOC: PAIN 06:49
PROVIDERS: ATTEND Clinical Nurse Specialist Adult Health
DX: M54.12 Radiculopathy, cervical region (principal); M25.511 Pain in right shoulder; M25.512 Pain in left shoulder; G89.29 Other chronic pain; M96.1 Postlaminectomy syndrome, not elsewhere classified; Z79.899 Other long term (current) drug therapy

== ENCOUNTER → 2020-01-09 | Outpatient (CLI) | payer BC ==
[~2020-01-09] VITALS: Ht 157.5 cm; Wt 76.4 kg
[2020-01-09 13:17] VITALS: BP 109/70
--- NOTE | 2020-01-09 13:25 | NUR ---
Pain Clinic Assessment: 1. History of Osteoarthritis: NECK History of Rheumatoid Arthritis: Not Applicable 2. Height: 5 ft. 2 in. 157.5 cm. Weight: 168.4 lb. oz. 76.386 kg. Patient's BMI: 30.8 3. Vital Signs: BP: 109/70 Pulse: 87 Resp: 14 Temp: 02 Sat: 100 ECG Mon: 4. Pain Intensity: 6 5. Fall Risk: Dizziness: N Needs help standing or walking: N Fallen in the last 3 months: N Fall risk comments: 6. Patient on Blood Thinner: None 7. History of Hypertension: N 8. Opioid Therapy greater than 6 weeks: Y Opiate Contract Signed: 9. Risk Assessment Tool Provided: 2-low 10. Functional Assessment Tool: 11. Recreational Drug Use: Never Drug Type: Tobacco Use: Former Smoker Tobacco Type: Amount or Packs/day: How Many Years: Alcohol Use: Yes Frequency: Quant:
--- NOTE | 2020-01-10 07:46 | HPC ---
[facility] [address] [place] [address] PAIN MANAGEMENT CONSULTATION Name: ASHA CORTES Room #: REG TRISTEN Maria L.#: [id number] Admission: 01/09/20 Attend Phys: Vanessa Salomon Discharge: Date of : 75 Report #: [id number] CC: Vanessa Salomon [facility] physician/PCP Kael Sahni MD DATE OF SERVICE: 01/09/2020 CHIEF COMPLAINT: Neck pain, bilateral shoulder pain and upper extremity pain, cervical radiculopathy. HISTORY OF PRESENT ILLNESS: This is a 44-year-old female who returns to the pain clinic today to discuss medication options. She recently underwent a paddle lead cervical spinal cord stimulator trial by Dr. León at [facility] in late November. Per the patient's report, she was inpatient for 4 days while they adjusted the spinal cord stimulator that she did not have relief, in fact per her report she had increasing pain throughout the trial while hospitalized and then the result was removal of the device and she is here today to discuss medication management. She is rating her pain today at 6/10, located in her cervical region that radiates into her upper right shoulder area and occasionally radiating to the left. She also complains of some pain on her right lower back at an incision area where her leads were connected to her battery pack. The patient states that she is here for refills of oxycodone. She is unsure what the next step is in her treatment of pain. She is under the understanding from the [employer] rep that Dr. Kael Bennett will be performing a possible percutaneous spinal cord stimulator leads. According to our records, Dr. Kael Bennett did not feel that he would be able to advance easily due to scarring in her cervical region. The patient states that at times when she takes a deep breath she has increased pain in her right thoracic area as well as her ongoing neck pain and occasionally radiates into her right arm as well. 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 ALLERGIES: No known drug allergies. CURRENT LIST OF MEDICATIONS: Oxycodone 5/325 p.r.n., venlafaxine, and cyclobenzaprine. PQRS: 1. She has osteoarthritis in her neck. Denies any rheumatoid arthritis. 2. Height is 5 feet 2 inches, weight is 168, BMI is 30. 3. Vital signs; blood pressure 109/70, pulse is 87, respirations 14, oxygen sat is 100%. 4. Pain score is 6/10. 5. Fall risk. Denies dizziness, does not need help walking or standing, has not fallen in the last 3 months. 6. The patient is not on any blood thinners or medicine for hypertension. 7. Her opioid therapy is greater than 6 weeks. Risk assessment tool is low. Functional assessment is 44/70. 8. Recreational drug use, she denies. She is a former smoker and does occasionally drink alcohol. According to the prescription monitoring system, she has last filled her prescription on 12/31/[address] León. This was a 10-day supply of her oxycodone. He has filled 2 prescriptions in the last month for her postoperatively. Her morphine milliequivalent according to the CDC guidelines is 30 MME's. PHYSICAL EXAMINATION: GENERAL: This is alert and orientated, tearful 44-year-old who appears her stated age, placing her current pain score today at 6/10. She is well-developed, well-nourished, well-hydrated. HEENT: Normocephalic, atraumatic. Extraocular eye muscles are intact. She is a good historian. She is wearing a mask. EXTREMITIES: No clubbing, no cyanosis, no edema. MUSCULOSKELETAL: Upper extremity strength appears symmetrical at 5/5. Cervical provocation is met with restrictions in motion with the lateral flexion and rotation. She has a well-healed surgical scar in her cervical spine several trigger points are identified in her trapezius muscles, greater on the right than the left. IMPRESSION: 1. Chronic neck pain. 2. Chronic cervical radiculopathy. 3. Failed cervical spine surgery. 4. Failed spinal cord stimulator trial. 5. Chronic intractable pain. PLAN: 1. We discussed treatment options with the patient today. It was our understanding per reports from Dr. Kael Bennett that the patient is going to have surgery with Dr. León in 3 months. The patient states that she was unaware of this current plan, but she will call their office to verify. The patient is tearful throughout some of the visit stating that she was so hopeful that the spinal cord stimulator cervical trial would be beneficial in reducing her pain, but instead she feels like her pain has increased since the trial. We will offer to continue her medications for the next 3 months awaiting to see if she is scheduled for surgery in early March. Dr. Bennett is willing to continue her at 5/325 of oxycodone 3 tablets a day for the next 3 months. The patient is agreeable with this and will call Dr. León's office as well. 2. The patient had been taking Flexeril as a muscle relaxant as needed. We will continue this medication, #30 tablets. Encouraged the patient to take these sparingly due to the sedating effect in her job. The patient verbalized understanding. 3. I have taken the liberty of writing an order for the patient for myofascial release in her cervical and trapezius muscles region through Dr. Paul dowling at [facility]. I believe this may be beneficial in helping reduce some of the patient's discomfort in her upper cervical region. I explained to her that it would not be for manipulation or adjustment it would just be for myofascial release. 4. We will have the patient follow up in 1 month. We will try to obtain records from Dr. León's office in the meantime. The patient is seen today in collaboration with Dr. Kael Bennett. <ELECTRONICALLY SIGNED> By: Vanessa Salomon 01/10/20 0746 1420 13 Vanessa Salomon /janessa
== END ==
LOC: PAIN 06:57
PROVIDERS: ATTEND Clinical Nurse Specialist Adult Health
DX: M54.12 Radiculopathy, cervical region (principal); M25.511 Pain in right shoulder; M25.512 Pain in left shoulder; M96.1 Postlaminectomy syndrome, not elsewhere classified; Z79.899 Other long term (current) drug therapy

== ENCOUNTER → 2020-02-06 | Outpatient (CLI) | payer BC ==
[~2020-02-06] VITALS: Ht 157.5 cm; Wt 76.7 kg
[~2020-02-06] MED LIST changes: +RELAFEN500 M1 PO
[2020-02-06 08:13] VITALS: BP 127/77
--- NOTE | 2020-02-06 08:19 | NUR ---
Pain Clinic Assessment: 1. History of Osteoarthritis: NECK History of Rheumatoid Arthritis: Not Applicable 2. Height: 5 ft. 2 in. 157.5 cm. Weight: 169.2 lb. oz. 76.749 kg. Patient's BMI: 30.9 3. Vital Signs: BP: 127/77 Pulse: 85 Resp: 18 Temp: 02 Sat: 99 ECG Mon: 4. Pain Intensity: 5-6 5. Fall Risk: Dizziness: N Needs help standing or walking: N Fallen in the last 3 months: N Fall risk comments: 6. Patient on Blood Thinner: None 7. History of Hypertension: N 8. Opioid Therapy greater than 6 weeks: Y Opiate Contract Signed: 9. Risk Assessment Tool Provided: 2-low 10. Functional Assessment Tool: 11. Recreational Drug Use: Never Drug Type: Tobacco Use: Former Smoker Tobacco Type: Amount or Packs/day: How Many Years: Alcohol Use: Yes Frequency: Special Occasions Quant:
--- NOTE | 2020-02-07 09:06 | HPC ---
[facility] [address] [place] [address] PAIN MANAGEMENT CONSULTATION Name: ASHA CORTES Room #: REG TRISTEN MVero.#: [id number] Admission: 02/06/20 Attend Phys: Vanessa Salomon Discharge: Date of : 75 Report #: [id number] THIS REPORT FOR: cc: MIEK - Leonila family physician/PCP FAM - No family physician/PCP Vanessa Salomon ~ CC: Vanessa Sahni MD DATE OF SERVICE: 02/06/2020 CHIEF COMPLAINT: Neck pain, bilateral shoulder pain and upper extremity pain, cervical radiculopathy. HISTORY OF PRESENT ILLNESS: This is a 44-year-old female who returns to the pain clinic today for discussion on her opioid medications and refill. Today, she is reporting an increased pain of 5-6 in her cervical region that does radiate into her right shoulder and her hands, stating it is a constant, sharp, stabbing pain with numbness. 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 This has significantly increased her pain. She reports by the end of the day she comes home, does use massage and heat as well as her medications and has been taking a few extra pain pills to help alleviate some of her pain. Today, she is reporting she has 2 days of medication left, which are several days early and is requesting an increase in the amount of medication that she takes on a daily basis. The patient states that normally the medications are beneficial just needing more than 3 tablets a day. She does have an appointment with Dr. León to discuss surgical options on 02/19/2020. She denies any constipation from her opioid medications. ALLERGIES: No known drug allergies. CURRENT LIST OF MEDICATIONS: Oxycodone 5/325 p.r.n., Flexeril p.r.n., venlafaxine. PQRS: 1. She has osteoarthritis in her cervical spine. Denies rheumatoid arthritis. 2. Height is 5 feet 2 inches, weight is 169, BMI is 30. 3. Vital signs, blood pressure 127/77, pulse is 85, respirations 18, oxygen sat is 99. 4. Pain score is 5-6. 5. Denies dizziness, does not need help walking or standing, has not fallen in the last 3 months. 6. The patient is not on any blood thinners and does not take [place] [address] PAIN MANAGEMENT CONSULTATION Name: ASHA CORTES Room #: REG TRISTEN Dipika#: [id number] Admission: 02/06/20 Attend Phys: Vanessa Salomon Discharge: Date of : 75 Report #: [id number] 7. Her opioid therapy is greater than 6 weeks. Risk assessment is low. Functional assessment is 44/70. 8. Recreational drug use, she denies. She is a former smoker and occasionally drinks alcohol. According to the prescription monitoring system, she is due to fill her medications on Tuesday, filling them in a timely fashion. Her morphine milliequivalent is 22 MME per day. PHYSICAL EXAMINATION: GENERAL: This is alert and orientated, well-developed, well-nourished 44-year-old female who places her pain score 5-6 today. HEENT: Normocephalic, atraumatic. Extraocular eye muscles are intact. She is a good historian. She is wearing a mask. Her speech is fluent. EXTREMITIES: No clubbing, no cyanosis, no edema. MUSCULOSKELETAL: Cervical provocation testing is met with restrictions in motion in the lateral flexion and rotation. She has well-healed surgical scars in her cervical spine. Pain radiates into her bilateral arms, greater on the right than the left. Muscle bulk and tone is equal and symmetrical in her upper extremities and intact to light touch at C5-T1 dermatomes. ASSESSMENT: 1. Chronic neck pain. 2. Chronic radiculopathy. 3. 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 4. Chronic intractable pain. PLAN: 1. We discussed treatment options with the patient today. The patient has been taking 4-5 tablets of pain pills a day per her report. I explained to her that Dr. Bennett is allowing her 3 tablets a day. We discussed adjunct medication therapy. She has been taking Flexeril on a p.r.n. basis. Occasionally, she will be "hungover" in the morning. I encouraged her to split her dose in half and see if that is more beneficial taking this once she comes home from work. 2. We did discuss another adjunct medicine of anti-inflammatories. The patient takes sporadic ibuprofen, encouraged her to trial Relafen 500 mg up to 3 times a day to see if this is beneficial in helping reduce some of her pain and allowing her to take less pain pills. The patient will start this medication today. Scripts sent electronically. 3. We will continue her on her oxycodone 5/325 mg tablets, #[address] be sent by Dr. Kael Bennett. We are unsure if insurance company will fill this early. The patient is seeing Dr. León on 02/19/2020 and she is encouraged to call us and let us know the results of that consultation. [address] [address] PAIN MANAGEMENT CONSULTATION Name: ASHA CORTES Room #: REG TRISTEN Bar#: [id number] Admission: 02/06/20 Attend Phys: Vanessa Salomon Discharge: Date of : 75 Report #: [id number] 4. The patient will return in [address] Kael Bennett who collaborated care. <ELECTRONICALLY SIGNED> By: Vanessa Salomon 02/07/20 0906 [id number] Vanessa Salomon /nt
== END ==
LOC: PAIN 06:47
PROVIDERS: ATTEND Clinical Nurse Specialist Adult Health
DX: M54.12 Radiculopathy, cervical region (principal); G89.4 Chronic pain syndrome; Z87.891 Personal history of nicotine dependence; Z79.891 Long term (current) use of opiate analgesic

== ENCOUNTER → 2020-03-04 | Outpatient (CLI) | payer BC ==
[~2020-03-04] VITALS: Ht 160 cm; Wt 77.1 kg
[2020-03-04 08:29] VITALS: BP 118/71
--- NOTE | 2020-03-04 08:44 | NUR ---
Pain Clinic Assessment: 1. History of Osteoarthritis: NECK History of Rheumatoid Arthritis: Not Applicable 2. Height: 5 ft. 3 in. 160.0 cm. Weight: 170.0 lb. oz. 77.112 kg. Patient's BMI: 30.1 3. Vital Signs: BP: 118/71 Pulse: 75 Resp: 16 Temp: 02 Sat: 100 ECG Mon: 4. Pain Intensity: 5-6 5. Fall Risk: Dizziness: N Needs help standing or walking: N Fallen in the last 3 months: N Fall risk comments: 6. Patient on Blood Thinner: None 7. History of Hypertension: N 8. Opioid Therapy greater than 6 weeks: Y Opiate Contract Signed: 9. Risk Assessment Tool Provided: 2-low 10. Functional Assessment Tool: 11. Recreational Drug Use: Never Drug Type: Tobacco Use: Former Smoker Tobacco Type: Amount or Packs/day: How Many Years: Alcohol Use: Yes Frequency: Monthly Quant:
--- NOTE | 2020-03-04 14:27 | HPC ---
[facility] [place] [address] PAIN MANAGEMENT CONSULTATION Name: ASHA CORTES Room #: REG [facility] M.R.#: [id number] Admission: 03/04/20 Attend Phys: Vanessa Salomon Discharge: Date of : 75 Report #: [id number] THIS REPORT FOR: cc: FAM - No family physician/PCP FAM - No family physician/PCP Vanessa Salomon ~ DATE OF SERVICE: 03/04/2020 CC: DR Regulo León MD CHIEF COMPLAINT: Back pain, bilateral shoulder pain and upper extremity pain and cervical radiculopathy. HISTORY OF PRESENT ILLNESS: This is a pleasant 44-year-old female who returns to the pain clinic today for a final visit for refill of her opioid medications. She finds these medicines beneficial in helping control her cervical radiculopathy as well as the nabumetone medication. Today, she is reporting a pain score 5-6 that radiates from her cervical spine into her right shoulder and hand. At times, it is a sharp, burning, shooting sensation. The patient reports it is worse with bending over and movement of her neck. The patient finds her medication as well as stretching beneficial. She reports now working only 40 hours a week, as has a written work excuse from her neurosurgeon. This has greatly reduced her pain due to the less activity throughout the day. ALLERGIES: No known drug allergies. CURRENT LIST OF MEDICATIONS: Oxycodone 5/325 t.i.d. p.r.n., nabumetone, Flexeril. PQRS: 1. She has osteoarthritis in her cervical spine. Denies any rheumatoid arthritis. 2. Height is 5 feet 3 inches, weight is 170, BMI is 30. 3. Vital signs 118/71, pulse is 75, respirations 16, oxygen sat is 100. 4. Pain score is 5-6. 5. Denies dizziness, does not need help walking or standing, has not fallen in the last 3 months. 6. The patient is not on any blood thinners or medicine for hypertension. 7. Her opioid therapy is greater than 6 weeks. Risk assessment is low. Functional assessment is 44/70. 8. Recreational drug use, she denies. She is a former smoker and occasionally drinks alcohol. According to the prescription monitoring system, she is due to fill her medications today, filling them in a timely fashion. Morphine mEq is 22 MME per day. [address] [address] PAIN MANAGEMENT CONSULTATION Name: ASHA CORTES Room #: REG CLJose Bar#: [id number] Admission: 03/04/20 Attend Phys: Vanessa Salomon Discharge: Date of : 75 Report #: [id number] PHYSICAL EXAMINATION: GENERAL: This is alert and orientated, well-developed, well-nourished 44-year-old who places her pain score at 5-6 today. She is a good historian without signs of overmedication. HEENT: Normocephalic, atraumatic. Extraocular eye muscles are intact. She is wearing a mask. EXTREMITIES: No clubbing, no cyanosis, no edema. MUSCULOSKELETAL: She has a well-healed surgical scar in her cervical spine. Pain radiates into her bilateral arms, greater on the right than the left. Cervical provocation test is met with restrictions in the motion, lateral flexion and rotation. Muscle bulk and tone is equal and symmetrical in her upper extremities and is intact to light touch from C5-T1 dermatomes. ASSESSMENT: 1. Chronic neck pain. 2. Chronic cervical radiculopathy. 3. Failed cervical spine surgery and failed spinal cord stimulator. 4. Chronic intractable pain. PLAN: 1. We discussed treatment options with the patient today. The patient has currently been taking oxycodone 5/325 up to 3 times a day and finds this beneficial, especially since she has decreased her work hours to 40 hours per week. She finds that the repetitive turning of her head at work was increasing her pain significantly. She also finds the nabumetone 500 mg 3 times a day beneficial and does not have any GI issues with taking this medication. Today will be the final prescription. 2. Today will be the final opioid prescription that Dr. Kael Bennett will send for #90 pills. She will continue these medications from Dr. León's office. She is set to see them in March and may possibly have another surgical procedure at that time. The patient reports she is in touch with their office currently as well as Dr. Kael Bennett has been in contact with Dr. León regarding this upcoming procedure. 5. We wish the patient the best of luck in her surgery and continued progress and hopefully decreasing her pain. Thank you for allowing us to see this patient. The patient is seen today in collaboration with Dr. Kael Bennett. <ELECTRONICALLY SIGNED> By: Vanessa Salomon 03/04/20 1427 [id number] [id number] Vanessa Salomon /janessa
== END ==
LOC: PAIN 06:45
PROVIDERS: ATTEND Clinical Nurse Specialist Adult Health
DX: M25.511 Pain in right shoulder (principal); M25.512 Pain in left shoulder; M54.12 Radiculopathy, cervical region; G89.4 Chronic pain syndrome; Z79.891 Long term (current) use of opiate analgesic

== ENCOUNTER → 2020-04-01 | Outpatient (CLI) | payer BC ==
[~2020-04-01] VITALS: Ht 160 cm; Wt 78.1 kg
[2020-04-01 10:43] VITALS: BP 115/64
--- NOTE | 2020-04-01 10:52 | NUR ---
Pain Clinic Assessment: 1. History of Osteoarthritis: NECK History of Rheumatoid Arthritis: DENIES 2. Height: 5 ft. 3 in. 160.0 cm. Weight: 172.2 lb. oz. 78.109 kg. Patient's BMI: 30.5 3. Vital Signs: BP: 115/64 Pulse: 73 Resp: 16 Temp: 02 Sat: 100 ECG Mon: 4. Pain Intensity: 7 5. Fall Risk: Dizziness: N Needs help standing or walking: N Fallen in the last 3 months: N Fall risk comments: 6. Patient on Blood Thinner: None 7. History of Hypertension: N 8. Opioid Therapy greater than 6 weeks: Y Opiate Contract Signed: 9. Risk Assessment Tool Provided: 2-low 10. Functional Assessment Tool: 11. Recreational Drug Use: Never Drug Type: Tobacco Use: Former Smoker Tobacco Type: Amount or Packs/day: How Many Years: Alcohol Use: Yes Frequency: Quant:
--- NOTE | 2020-04-02 12:07 | HPC ---
[facility] [address] [place] [address] PAIN MANAGEMENT CONSULTATION Name: ASHA CORTES Room #: REG TRISTEN Dipika#: [id number] Admission: 04/01/20 Attend Phys: Kael Bennett DO Discharge: Date of : 75 Report #: [id number] THIS REPORT FOR: cc: FAM - No family physician/PCP FAM - No family physician/PCP Kael Bennett DO ~ DATE OF SERVICE: 04/01/2020 REFERRING PHYSICIAN: Regulo León MD CHIEF COMPLAINT: Neck pain and bilateral head pain. HISTORY OF PRESENT ILLNESS: As you know, the patient is a pleasant 44-year-old female returning in followup visit per the request of his neurosurgery team to address neck pain and bilateral head pain. We originally saw the patient per their request to trial a spinal cord stimulating device. It was determined that her neck was not amenable to percutaneous lead implantation and thus was treated conservatively with medications, so that she can prepare to undergo surgical implantation of the device. She underwent this procedure, but did not notice much in the way of improvement in symptoms with that device. She was subsequently returned back to our clinic to discuss the possibility of continuation of medications. We advised the patient at the initial visit and at every visit since it is not appropriate given her age range to continue on opioid medications as they do not show long-term benefit. She sought further evaluation through her neurosurgery team who then referred the patient back to trial occipital nerve blocks. The patient's symptoms are radiating from the upper cervical region over the top of the head in a cervicogenic-type fashion consistent with third occipital neuralgia. She has been referred back to trial injections. As you are aware, the patient has had significant posterior and anterior fusions and will likely need further surgical intervention, though she is hopeful to avoid this with more conservative treatment. ALLERGIES: No known drug allergies. CURRENT MEDICATIONS: Percocet 5/325 one tab every 8 hours p.r.n. for pain, venlafaxine 75 mg b.i.d., cyclobenzaprine 10 mg once a day p.r.n. SOCIAL HISTORY: The patient reports herself as a former smoker. She denies IV or illicit drug use. Denies any chronic alcohol use. She is working, not receiving workmen's compensation, unaccompanied today. IMAGING: No new imaging available. PHYSICAL EXAMINATION: VITAL SIGNS: Blood pressure 115/64, pulse 73, respiratory rate 16 and unlabored. The patient is 100% on room air. Height 5 feet 3 inches tall, [facility] [address] [place] [address] PAIN MANAGEMENT CONSULTATION Name: ASHA CORTES Room #: REG [facility].#: [id number] Admission: 04/01/20 Attend Phys: Kael Bennett DO Discharge: Date of : 75 Report #: [id number] weight 172.2 pounds, BMI calculated at 30.5. GENERAL: Well-developed, well-nourished, well-hydrated 44-year-old female appearing stated age, placing current pain score 7/10. HEENT: Normocephalic, atraumatic. Pupils are equal, round and reactive. NEUROLOGIC: Speech fluent. The patient deemed a fair historian. She is wearing a mask in compliance with COVID-19 regulations. EXTREMITIES: Show no clubbing, no cyanosis, no edema. MUSCULOSKELETAL: The patient has some palpatory tenderness over the paraspinal musculature of the cervical spine. Has well-healed surgical scars noted plus a noted deficit in the posterior cervical area consistent with surgery. There is limited range of motion secondary to surgical intervention and generation of pain. Palpatory tenderness is noted at the upper cervical region consistent with third occipital neuralgia. Deep palpation in area causes intensification of pain with radiation over the occiput. ASSESSMENT: 1. Third occipital neuralgia. 2. Cervicogenic headache. 3. Chronic neck pain, status post fusion. PLAN: 1. The patient returns today in followup visit per the request of her neurosurgeon to undergo third occipital nerve blocks in hopes of improving pain. Originally, the request was for occipital nerve blocks though this would not provide much in the way of long-term benefit injecting across the occipital ridge when her symptoms are more related to the upper cervical region consistent with third occipital neuralgia. We discussed this with the patient today and she is in agreement to undergo third occipital nerve blocks. If she notes improvement in symptoms, then she is going to discuss with the surgeons to undergo rhizotomy of these nerve roots. We have advised the patient of the risks and benefits of this procedure. These risks include but are not necessarily limited to bleeding, bruising, infection, worsening pain, no relief of pain, also risk of temporary or permanent muscle weakness, temporary or permanent nerve damage, possible paralysis and . The patient states understood and wished to proceed. 2. The patient was provided refill prescription of her oxycodone. We have discussed with the patient our desire to discontinue the use of opioid medications in her case. She states that she cannot go about her activities of daily living without the medication. She came to us on this therapy and we agreed to provide treatment while she was undergoing interventional therapies, but will not be providing these long-term. She was given a prescription, sent to a local pharmacy today. 3. We will see the patient back in followup visit on an as needed basis for interventional treatments. We are hopeful she does very well with the requested [facility] [address] [place] [address] PAIN MANAGEMENT CONSULTATION Name: ASHA CORTES Room #: SINTIA Bar#: [id number] Admission: 04/01/20 Attend Phys: Kael Bennett DO Discharge: Date of : 75 Report #: [id number] blocks today and will be an appropriate candidate to undergo surgery to address the third occipital nerves. <ELECTRONICALLY SIGNED> By: Kael Bennett DO 04/02/20 1207 1255 1334 Kael Bennett DO /nt
--- NOTE | 2020-04-08 08:02 | P ---
[facility] [place] [address] [place] [address] PROCEDURE REPORT Name: ASHA CORTES Room #: REG TRISTEN Bar#: [id number] Admission: 04/01/20 Attend Phys: Kael Bennett DO Discharge: Date of : 75 Report #: [id number] THIS REPORT FOR: cc: FAM - No family physician/PCP FAM - No family physician/PCP Kael Bennett DO ~ DATE OF SERVICE: 04/01/2020 PROCEDURE PERFORMED: Bilateral third occipital nerve blocks under fluoroscopic guidance. DESCRIPTION OF PROCEDURE: After obtaining written consent, the patient was taken back to fluoroscopy suite, placed in prone position with separate pillows under chest and forehead to decrease cervical lordosis. Skin overlying the area was then prepped and draped in aseptic fashion. The fluoroscope was brought into position and AP imaging was obtained to confirm the C2-C3 facet joints, the area of the third occipital nerve as it transitions through the splenius capitis muscles. We marked the areas with a sterile marker both on the right and left side. We anesthetized the skin with 2 mL of 1% lidocaine at each position. Next, two 25-gauge 2-inch needles were advanced under fluoroscopic guidance towards the C2-C3 facet joint bilaterally. Needle was advanced until reaching the articular pillars. After negative aspiration for heme, 2 mL of a solution containing 1 mL 40 mg per mL, 40 mg total triamcinolone and 3 mL of bupivacaine 0.5% injected slowly. [place] were retracted detention, flushed with 1 mL of 1% lidocaine and removed. Sterile bandage was placed over each of the injection sites. The patient tolerated procedure well, carefully escorted to recovery room in stable condition. No apparent complications. The patient was reporting improvement in symptoms upon discharge from our clinic today indicating pain reduction of about 40%. She is to monitor her efficacy with this injection and discuss this with the surgeon at their followup visit. <ELECTRONICALLY SIGNED> By: Kael eBnnett DO 04/08/20 0802 1255 1335 Kael Bennett DO /nt
== END | disposition home or self-care (01) ==
LOC: PAIN 06:54
PROVIDERS: ATTEND Anesthesiology Pain Medicine
DX: M54.81 Occipital neuralgia (principal); G44.89 Other headache syndrome; M54.2 Cervicalgia; G89.29 Other chronic pain; Z87.891 Personal history of nicotine dependence; Z98.890 Other specified postprocedural states; Z79.899 Other long term (current) drug therapy

== ENCOUNTER → 2020-04-29 | Outpatient (CLI) | payer BC ==
[~2020-04-29] VITALS: Ht 160 cm; Wt 79.2 kg
[2020-04-29 08:28] VITALS: BP 116/73
--- NOTE | 2020-04-29 08:38 | NUR ---
Pain Clinic Assessment: 1. History of Osteoarthritis: NECK History of Rheumatoid Arthritis: DENIES 2. Height: 5 ft. 3 in. 160.0 cm. Weight: 174.6 lb. oz. 79.198 kg. Patient's BMI: 30.9 3. Vital Signs: BP: 116/73 Pulse: 71 Resp: 16 Temp: 02 Sat: 98 ECG Mon: 4. Pain Intensity: 4-5 5. Fall Risk: Dizziness: N Needs help standing or walking: N Fallen in the last 3 months: N Fall risk comments: 6. Patient on Blood Thinner: None 7. History of Hypertension: N 8. Opioid Therapy greater than 6 weeks: Y Opiate Contract Signed: 9. Risk Assessment Tool Provided: 2-low 10. Functional Assessment Tool: 11. Recreational Drug Use: Never Drug Type: Tobacco Use: Former Smoker Tobacco Type: Amount or Packs/day: How Many Years: Alcohol Use: Yes Frequency: Quant:
--- NOTE | 2020-04-30 10:18 | HPC ---
[facility] [address] [place] [address] PAIN MANAGEMENT CONSULTATION Name: ASHA CORTSE Room #: REG TRISTEN Lisa.#: [id number] Admission: 04/29/20 Attend Phys: Vanessa Salomon Discharge: Date of : 75 Report #: [id number] THIS REPORT FOR: cc: FAM - No family physician/PCP FAM - No family physician/PCP Vanessa Salomon ~ DATE OF SERVICE: 04/29/2020 REFERRING PHYSICIAN: Dr. Regulo León. CHIEF COMPLAINT: Neck pain and bilateral head pain. HISTORY OF PRESENT ILLNESS: As you know, this is a 44-year-old female who continues to have ongoing neck and bilateral head pain. She reports her pain score of 4-5 this morning, states that usually it is better in the morning and then worsening after she has worked during the day and in the evening. She states that her pain is a sharp, shooting pain in her neck and then around her eye, especially worse today around her right eye. Cold weather does affect it. She finds stretching and her medications of Percocet that have been beneficial and occasional muscle relaxant at night. The patient recently saw Dr. Kael Bennett and had a bilateral third occipital nerve block at the C2-C3 level. She reports 20% relief for a couple of days. She feels the numbing medicine was very beneficial and was effective in her painful area, but she did not obtain relief from the steroids. She has been attempting to talk with Dr. León's office regarding a rhizotomy that he has suggested to her. She will call them again today. Her insurance company has denied a spinal cord stimulator paddle leads. ALLERGIES: No known drug allergies. CURRENT LIST OF MEDICATIONS: Percocet 5/325 p.r.n., Flexeril, and Effexor. PQRS: 1. 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 Denies any rheumatoid arthritis. 2. Height is 5 feet 3 inches, weight is 174, BMI is 30. 3. Vital signs 116/73, pulse is 71, respirations 16, oxygen sat is 98. 4. Pain score is 4-5 currently. 5. Denies dizziness, does not need help walking or standing, has not fallen in the last 3 months. 6. The patient is not on any blood thinners or medicine for hypertension. Opioid therapy is greater than 6 weeks. 7. Risk assessment is low. Functional assessment is 44/70. 8. Recreational drug use, she denies. She is a former smoker and occasionally drinks alcohol. [address] [address] PAIN MANAGEMENT CONSULTATION Name: ASHA CORTES Room #: REG [facility].#: [id number] Admission: 04/29/20 Attend Phys: Vanessa Salomon Discharge: Date of : 75 Report #: [id number] According to the prescription monitoring system, she is filling appropriately. She is due to fill her medications this week. Her morphine mEq is 22 MME. PHYSICAL EXAMINATION: GENERAL: This is an alert and oriented 44-year-old female who appears her stated age. She is a good historian, rating her pain score to 4-5 currently. HEENT: Normocephalic, atraumatic. Pupils equal, round and reactive. Speech is fluent. She is wearing a mask. EXTREMITIES: No clubbing, no cyanosis, no edema. MUSCULOSKELETAL: She has tenderness over her paraspinal musculature of her cervical spine with well-healed surgical scars in the cervical area. Limited range of motion secondary to surgery. Tenderness in her occipital areas as well as around her right orbital area today. ASSESSMENT: 1. Third occipital neuralgia. 2. Cervicogenic headache. 3. Chronic neck pain, status post fusion. 4. Management of opioid medications. PLAN: 1. We discussed treatment options with the patient today. Unfortunately, the patient had very minimal relief from her third occipital nerve block with Dr. Kael Bennett performed in March less than 20% for only a day. She is interested in a rhizotomy procedure that Dr. León has mentioned to her. She is in the process of trying to talk with Lashawn, the nurse practitioner and I encouraged her to call them again today. 2. She finds the Percocet beneficial helping her get through her work day, taking one in the morning, one after work and one in the evening. We will continue this medication of Percocet 5/325, #90. Dr. Kael Bennett will send this electronically. 3. We will follow up with the patient in 1 month and encouraged her again to call Dr. León's office regarding the surgery, Dr. Kael Bennett did collaborate care. <ELECTRONICALLY SIGNED> By: Vanessa Salomon 04/30/20 1018 6 2 Vanessa Salomon /janessa
== END ==
LOC: PAIN 06:51
PROVIDERS: ATTEND Clinical Nurse Specialist Adult Health
DX: M54.2 Cervicalgia (principal); R51.9 Headache, unspecified; M54.81 Occipital neuralgia; F11.20 Opioid dependence, uncomplicated

== ENCOUNTER → 2020-05-21 | Outpatient (CLI) | payer BC ==
[~2020-05-21] VITALS: Ht 160 cm; Wt 79.2 kg
--- NOTE | 2020-05-21 12:53 | NUR ---
Pain Clinic Assessment: 1. History of Osteoarthritis: NECK History of Rheumatoid Arthritis: DENIES 2. Height: ft. in. cm. Weight: lb. oz. kg. Patient's BMI: 3. Vital Signs: BP: Pulse: Resp: Temp: 02 Sat: ECG Mon: 4. Pain Intensity: 6 5. Fall Risk: Dizziness: Needs help standing or walking: Fallen in the last 3 months: Fall risk comments: 6. Patient on Blood Thinner: None 7. History of Hypertension: N 8. Opioid Therapy greater than 6 weeks: Y Opiate Contract Signed: 9. Risk Assessment Tool Provided: 2-low 10. Functional Assessment Tool: 11. Recreational Drug Use: Never Drug Type: Tobacco Use: Former Smoker Tobacco Type: Amount or Packs/day: How Many Years: Alcohol Use: Yes Frequency: Special Occasions Quant: 2-3
[2020-05-21 12:55] VITALS: BP 129/79
--- NOTE | 2020-05-21 12:57 | NUR ---
Pain Clinic Assessment: 1. History of Osteoarthritis: NECK History of Rheumatoid Arthritis: DENIES 2. Height: 5 ft. 3 in. 160.0 cm. Weight: 174.6 lb. oz. 79.198 kg. Patient's BMI: 30.9 3. Vital Signs: BP: 129/79 Pulse: 93 Resp: 16 Temp: 02 Sat: 98 ECG Mon: 4. Pain Intensity: 6 5. Fall Risk: Dizziness: N Needs help standing or walking: N Fallen in the last 3 months: N Fall risk comments: 6. Patient on Blood Thinner: None 7. History of Hypertension: N 8. Opioid Therapy greater than 6 weeks: Y Opiate Contract Signed: 9. Risk Assessment Tool Provided: 2-low 10. Functional Assessment Tool: 11. Recreational Drug Use: Never Drug Type: Tobacco Use: Former Smoker Tobacco Type: Amount or Packs/day: How Many Years: Alcohol Use: Yes Frequency: Special Occasions Quant: 2-3
--- NOTE | 2020-05-21 14:53 | HPC ---
[facility] [place] [address] [address] [place] [address] PAIN MANAGEMENT CONSULTATION Name: ASHA CORTES Room #: REG TESSIEJose Bar#: [id number] Admission: 05/21/20 Attend Phys: Kael Bennett DO Discharge: Date of : 75 Report #: [id number] THIS REPORT FOR: cc: MIKE - No family physician/PCP FAM - No family physician/PCP Kael Bennett DO ~ DATE OF SERVICE: 05/21/2020 CHIEF COMPLAINT: Neck pain and bilateral head pain. HISTORY OF PRESENT ILLNESS: As you know, the patient is a very pleasant 44-year-old female returning in followup visit to discuss ongoing pain issues. She reports that Neurosurgery has not contacted her back in regards to the surgical options. They continue to press forward with percutaneous neural stimulation, though the patient does not wish to undergo this procedure. She is interested only in the rhizotomy, which was proposed by Dr. León at her previous evaluation. She has not had a chance to see Dr. León, as they continued to schedule her back with the nurse practitioner. The patient returns today requesting refill of medications, understanding that long-term treatment with oxycodone is not going to be possible. We have advised the patient that we do not consider this appropriate treatment and that the options for more definitive therapy are present, but has not been availed. She returns today requesting refill on medications understanding that in the very near future, this medication will have to discontinue. She has shown no aberrancy with the medication. It is just not appropriate for 44-year-old female with a long-term treatment. ALLERGIES: No known drug allergies. CURRENT MEDICATIONS: Percocet 5/325 one tab every 8 hours p.r.n. for pain, venlafaxine 75 mg b.i.d., cyclobenzaprine 10 mg t.i.d. SOCIAL HISTORY: The patient reports herself a former smoker. Denies IV or illicit drug use. Denies any chronic alcohol use. She is working, not receiving workmen's compensation, unaccompanied today. IMAGING: No new imaging available. PHYSICAL EXAMINATION: VITAL SIGNS: Blood pressure 129/79, pulse is 93, respiratory rate 16 and unlabored. The patient 98% on room air. Height 5 feet 3 inches tall, weight 174.6 pounds, BMI calculated 30.9. GENERAL: Well-developed, well-nourished, well-hydrated, 44-year-old female. Pain is rated today 6/10. HEENT: Normocephalic, atraumatic. Pupils equal, round and reactive. Speech is fluent. [address] [address] PAIN MANAGEMENT CONSULTATION Name: ASHA CORTES Room #: REG [facility] M..#: [id number] Admission: 05/21/20 Attend Phys: Kael Bennett DO Discharge: Date of : 75 Report #: [id number] EXTREMITIES: Show no clubbing, no cyanosis, and no edema. The patient is wearing a mask in compliance with COVID-19 regulations. MUSCULOSKELETAL: Palpatory tenderness to the paraspinal musculature of the cervical spine noted again today. Well-healed surgical scars in the posterior cervical area. There is tenderness to palpation at the C2-C3 facet joints in the upper cervical area. Cervical provocation testing is met with increased pain. No noted crepitus. ASSESSMENT: 1. Third occipital neuralgia. 2. Cervicogenic headaches. 3. Chronic neck pain, status post fusion. PLAN: 1. The patient returns today in followup visit indicating that she is having difficulty following up with her neurosurgeon, Dr. Rui León. Apparently, she is being seen only by nurse practitioner who continues to propose a percutaneous neurostimulator, though the patient does not wish to undergo that procedure. She has voiced her concerns about that device in the past, but they continue to assess the patient for this device. She is to follow up with Dr. León to discuss her desire for rhizotomy, which was proposed to the patient long before spinal cord stimulator was even entertained in the past. She wishes to follow up with Dr. León in regards to the rhizotomy proposed and undergo the procedure as quickly as possible. The patient will be following up with Neurosurgery in regards to this issue. The patient was referred to our clinic by Neurosurgery, specifically to provide short-term medication management in preparation for surgical options. We have been treating this patient since her initial visit of 05/01/2019 and opioid medications will need to discontinue. It is not appropriate to continue a 44-year-old female on opioid medication for cervicogenic pain. The patient is agreeable with plan. She will be following up with Neurosurgery. 2. We have provided the patient with a refill of the oxycodone 5/325, one tab p.o. q. 8 hours p.r.n. for pain. I have given the patient #90. I advised the patient watch for side effects with the use of medication. Again, we discussed at length that appropriate treatment for chronic neck pain and cervicogenic headache is not with opioid medications. Unfortunately, we have been advised that she was going to undergo surgery, but this has not been able to happen due to COVID delay. The patient will be following up with Neurosurgery to advise us on the timing of the rhizotomy planned visits in 02/2020. We will continue the patient on the medication at current dosing with the understanding that these will have to discontinue in the very near future as this again is not an appropriate long-term treatment. <ELECTRONICALLY SIGNED> By: Kael Bennett DO 05/21/20 1453 [id number] Kael Bennett DO /nt
== END ==
LOC: PAIN 06:46
PROVIDERS: ATTEND Anesthesiology Pain Medicine
DX: M54.2 Cervicalgia (principal); R51.9 Headache, unspecified; M54.81 Occipital neuralgia

== ENCOUNTER → 2020-06-18 | Outpatient (CLI) | payer BC ==
[~2020-06-18] VITALS: Ht 160 cm; Wt 80.1 kg
--- NOTE | ~2020-06-18 | HPC ---
[facility] [address] [address] PAIN MANAGEMENT CONSULTATION Name: ASHA CORTES Room #: REG TRISTEN MVero.#: [id number] Admission: 06/18/20 Attend Phys: Vanessa Salomon Discharge: Date of : 75 Report #: [id number] THIS REPORT FOR: cc: MIKE - No family physician/PCP FAM - No family physician/PCP Vanessa Salomon ~ DATE OF SERVICE: 06/18/2020 CHIEF COMPLAINT: Neck pain and bilateral hip pain. HISTORY OF PRESENT ILLNESS: This is a pleasant 44-year-old female who returns to the pain clinic today for renewal of her medications and discussion of possible ongoing treatment options. Today the patient rates her pain at 5/10, mostly located in the occipital region of her neck that does radiate downward into her cervical spine. She has some muscular areas that are more problematic today as well. Her pain does radiate into her ear on her right side as well today. She states that her pain is constant, worse with cold weather and as the day progresses. She believes her medication as well as stretching and hot showers have been beneficial. The patient reports she is going to schedule a massage to see if that is helpful on myofascial pain that has been problematic lately. The patient reports that she has this appointment withLashawn, the nurse practitioner at Dr. León's office on 07/15/2020. At that time, she is going to request to have a rhizotomy surgery date set with Dr. León. She has been unable to see him since she was in the hospital for her peripheral nerve stimulator trial. If they are unwilling to do that, she is going to be asked to release and see another surgeon. ALLERGIES: No known drug allergies. CURRENT LIST OF MEDICATIONS: Oxycodone 5/325 p.r.n., venlafaxine, and Flexeril. PQRS: 1. She has arthritic changes in her neck. Denies any rheumatoid arthritis. 2. Height is 5 feet 3 inches, weight is 176, BMI is 31. 3. Vital signs 143/95, pulse is 88, respirations 16, oxygen sat is 98%. 4. Pain score is 5/10. 5. Denies dizziness, does not need help walking or standing, has not fallen in the last 3 months. 6. The patient is not on any blood thinners or medicine for hypertension. 7. Opioid therapy is greater than 6 weeks. Risk assessment is low. Functional assessment is 44/70. 8. Recreational drug use, she denies. She is a former smoker and [place] [address] PAIN MANAGEMENT CONSULTATION Name: ASHA CORTES Room #: REG TRISTEN Bra#: [id number] Admission: 06/18/20 Attend Phys: Vanessa Salomon Discharge: Date of : 75 Report #: [id number] According to the prescription monitoring system, she is due to fill her medications next week. She is here early due to work issues scheduling time off. Her morphine mEq is 22 MME. We will collect a random drug screen on this patient today. PHYSICAL EXAMINATION: GENERAL: This is a well-developed, well-nourished, well-hydrated 44-year-old female who appears her stated age, rating her pain score at 5/10. HEENT: Normocephalic, atraumatic. Pupils equal, round and reactive to light. Speech is fluent. She is wearing a mask. EXTREMITIES: No clubbing, no cyanosis, no edema. MUSCULOSKELETAL: She has tenderness in the paraspinal musculature of the cervical spine as well in the occipital region, greater on the right side than the left today. She has well-healed surgical scars in her cervical area as well. Cervical provocation testing is met with increasing pain. Upper extremity strength is symmetrical at 5/5. ASSESSMENT: 1. Third occipital neuralgia. 2. Cervicogenic headaches. 3. Chronic neck pain, status post fusion. 4. Complicated medical management utilizing scheduled opioid medications. We reviewed the fact that opiate medications are being used to provide analgesia adequate to support activities of daily living, not attempting to achieve a specific pain score on the 0-10 Visual Analog Scale. The current opiate medications are providing sufficient analgesia to allow the patient to participate in activities of daily living. The patient is not exhibiting any aberrant behavior suggestive of drug diversion. The patient is not having any adverse reactions to medications. The patient is not suffering from daytime somnolence or mental acuity changes. The patient is managing opiate-induced constipation with appropriate tmdt-mzj-nlodjqr agents and dietary considerations. The patient was counseled on concern for caution with operating a motor vehicle while using opiate medications. A physical exam was performed and the patient's functional status was evaluated. All patients with back pain were advised against the bed rest greater than 4 days and were advised to return to normal activities. Pain score assessment was noted and the treatment plan was reviewed with the patient. All current medications, both prescribed and OTC were reviewed and reconciled on the electronic medical record. Tobacco screening was accomplished and smoking cessation was advised when indicated. BMI was noted and diet/exercise modification was recommended for all patients following outside normal parameters. I reviewed with the patient today their responsibilities to [address] [address] PAIN MANAGEMENT CONSULTATION Name: ASHA CORTES Room #: REG [facility].#: [id number] Admission: 06/18/20 Attend Phys: Vanessa Salomon Discharge: Date of : 75 Report #: [id number] prescription medications, reviewed their responsibility to utilize medications only as prescribed by the physician. They are to seek and receive pain medications only from 1 physician group ( [facility]). They are to use 1 pharmacy and keep the clinic informed if they change pharmacies. Their responsibilities include making followup visits in a timely fashion and to avoid abrupt discontinuation of medication usage. Their responsibilities further include bringing their medications (bottles from the pharmacy with residual pills) to the visit for possible confirmation of pill counts and the patient understands it is their responsibility to submit to random drug screens to ensure both that the medications prescribed are present, and that no other controlled substances are present. All prescriptions provided today were generated electronically. PLAN: 1. According to our discussions today, the patient is going to hopefully set up surgery within the next few months with Dr. León for rhizotomy. The patient encouraged if they are not willing to set a date, she will ask to be released and see another neurosurgeon. 2. We will continue her on her oxycodone , #90. This will be sent electronically by Dr. Kael Bennett to be filled next week on 06/23/2020. 3. We attempteded to collect a a random drug screen on this patient today as we have not collected one in the past, though she hopefully will be weaning off her opioids if she is successful in having surgery. The patient was unable to urinate and stated that she needed go to work. We explained that she could return at her lunch break today or offered for her to come before work tomorrow. She opted for the am. We will have staff her to meet her in the am. Time spent with the patient in consultation, reviewing recent studies and clinical notes and physician reports, physical examination and correlation of findings and medical documentation to determine treatment 12 minutes. Time spent in preparation for appointment review and prescription monitoring system reports, reviewing previous records and proposed treatment options, reviewing current medications 5 minutes. Time spent preparing and sending electronic prescriptions with collaborating physician, Dr. Kael Bennett and documentation of visit and plan of care 8 minutes. Total time spent 25 minutes. Addendum: The patient did not come to the Pain Clinic to provide a urine speciman today. She did call the office at 8:45 to report that she had been up sick all night. The phone nurse encouraged the patient to come to the clinic before 1pm to provide this speciman since she assumed that she was home sick [place] [address] PAIN MANAGEMENT CONSULTATION Name: ASHA CORTES Room #: REG TRISTEN Bar#: [id number] Admission: 06/18/20 Attend Phys: Vanessa Salomon Discharge: Date of : 75 Report #: [id number] She assured her on the message that it would not be a visit only a speciman collection and she could return home. She has not come to the office during clinic hours. The Charge nurse did leava another message for her. She instructed her that she could fill her prescription on 06/23/2020 and that would be the final one from our office. This is because she failed to provide a random screen as we had requested either at her time of visit or when other arrangements had been made the next day. She has an appointment on with Dr León office in which they can address her need for further medications. We will gladly see her for injection therapies. By: 0937 21 Vanessa Salomon /janessa
[2020-06-18 08:52] VITALS: BP 143/95
--- NOTE | 2020-06-18 09:01 | NUR ---
Pain Clinic Assessment: 1. History of Osteoarthritis: NECK History of Rheumatoid Arthritis: DENIES 2. Height: 5 ft. 3 in. 160.0 cm. Weight: 176.6 lb. oz. 80.105 kg. Patient's BMI: 31.3 3. Vital Signs: BP: 143/95 Pulse: 88 Resp: 16 Temp: 02 Sat: 98 ECG Mon: 4. Pain Intensity: 5 5. Fall Risk: Dizziness: N Needs help standing or walking: N Fallen in the last 3 months: N Fall risk comments: 6. Patient on Blood Thinner: None 7. History of Hypertension: N 8. Opioid Therapy greater than 6 weeks: Y Opiate Contract Signed: 9. Risk Assessment Tool Provided: 2-low 10. Functional Assessment Tool: 11. Recreational Drug Use: Never Drug Type: Tobacco Use: Former Smoker Tobacco Type: Amount or Packs/day: How Many Years: Alcohol Use: Yes Frequency: Special Occasions Quant: 2
== END ==
LOC: PAIN 06:50
PROVIDERS: ATTEND Clinical Nurse Specialist Adult Health
DX: M54.2 Cervicalgia (principal); M25.551 Pain in right hip; M25.552 Pain in left hip; F11.20 Opioid dependence, uncomplicated; M54.81 Occipital neuralgia; G44.59 Other complicated headache syndrome